=== PATIENT | female | born 1965 | race Caucasian/White ===

== ENCOUNTER 2023-11-19 14:14 | Emergency (ER) | payer MEDICAID, SELFPAY ==
[2023-11-19] VITALS (15 sets, daily range): BP systolic 121–134; BP diastolic 70–81; PULSE 82–93; RESP 14–16; TEMP 36.6; O2SAT 91–99; BMI 37.0
--- NOTE | 2023-11-19 14:53 | CRLHL7_ITS ---
For Patients: As a result of the Century Cures Act, medical imaging exams and procedure reports are released immediately into your electronic medical record. You may view this report before your referring provider. If you have questions, please contact your health care provider. Indication: Upper abdominal pain, recent gastric bypass Technique: CT abdomen and pelvis after the intravenous administration of 112 cc of Isovue 370 Comparison: CT abdomen and pelvis 11/17/2020 Findings: Lower chest is clear. There are a couple of subcentimeter hypodensities within the liver which are too small to characterize. The gallbladder is surgically absent. The spleen, adrenal glands, pancreas and kidneys are unremarkable. There are no pelvic cysts or masses. Postsurgical changes of gastric bypass are identified. The hollow viscera without obstruction, focal bowel wall thickening or adjacent inflammatory stranding. The appendix is normal. Few scattered colonic diverticula are noted. There is no free air, ascites or lymphadenopathy. The abdominal aorta and its major branches are patent and normal in caliber. Degenerative changes are present within the spine, most significant at L4-5 and L5-S1. Rounded low-density within the subcutaneous fat of the upper mid abdominal wall is suggestive of focal fat necrosis. Impression: No acute intra-abdominal findings. Please note that all CT scans at this facility use dose modulation, iterative reconstruction, and/or weight-based dosing when appropriate to reduce radiation dose to as low as reasonably achievable. Dictated by Tashi Poole MD @ 11/19/2023 4:21:32 PM (Electronically Signed)
--- NOTE | 2023-11-19 14:55 | ED_ITS ---
HPI - Abdominal Pain General Chief Complaint: Abdominal Pain Stated Complaint: pain in stomach Time Seen by Provider: 11/19/23 14:38 History of Present Illness HPI narrative: This 58-year-old female comes in with severe upper epigastric abdominal pain. She had a gastric bypass surgery a couple weeks ago and reports pain beginning this morning and now becoming very severe. She has some nausea with vomiting. She arrives here with normal vital signs. Related Data Home Medications ?Medication ?Instructions ?Recorded ?Confirmed amitriptyline 100 mg tablet 100 mg PO QPM 08/28/23 08/28/23 amitriptyline 50 mg tablet mg PO 08/28/23 08/28/23 blood-glucose sensor (DexPlastyc G6 #1 ea 08/28/23 08/28/23 Sensor device) blood-glucose transmitter (Dexcom #1 ea 08/28/23 08/28/23 G6 Transmitter device) calcium citrate mg PO 08/28/23 08/28/23 cholecalciferol (vitamin D3) 125 125 mcg PO DAILY 08/28/23 08/28/23 mcg (5,000 unit) capsule diclofenac sodium 1 % topical gel 1 ea topical QID 08/28/23 08/28/23 emollient (Vanicream topical) 1 applic topical BID 08/28/23 08/28/23 exenatide microspheres 2 mg/0.85 mg subcut 08/28/23 08/28/23 mL subcutaneous auto-injector (Byshawn Khan) famotidine 40 mg tablet 40 mg PO DAILY 08/28/23 08/28/23 furosemide 40 mg tablet 40 mg PO BID 08/28/23 08/28/23 gabapentin 300 mg capsule 300 mg PO 3XD 08/28/23 08/28/23 hydroxyzine pamoate 50 mg capsule mg PO BID 08/28/23 08/28/23 insulin aspart U-100 100 unit/mL subcut 08/28/23 08/28/23 (3 mL) subcutaneous pen insulin glargine 100 unit/mL (3 unit subcut 08/28/23 08/28/23 mL) subcutaneous pen (Lantus Solostar U-100 Insulin) levothyroxine 150 mcg tablet 150 mcg PO DAILY 08/28/23 08/28/23 lisinopril 5 mg tablet 5 mg PO DAILY 08/28/23 08/28/23 metformin 500 mg tablet,extended 500 mg PO DAILY 08/28/23 08/28/23 release 24 hr metoprolol tartrate 100 mg tablet 100 mg PO BID 08/28/23 08/28/23 omeprazole 40 mg capsule,delayed 40 mg PO DAILY 08/28/23 08/28/23 release pen needle, diabetic 31 gauge x #1,200 ea 08/28/23 08/28/23 3/16 (BD Ultra-Fine Mini Pen Needle) prazosin 5 mg capsule mg PO 08/28/23 08/28/23 quetiapine 300 mg tablet 300 mg PO BID 08/28/23 08/28/23 rosuvastatin 5 mg tablet 5 mg PO DAILY 08/28/23 08/28/23 tizanidine 2 mg tablet 2 mg PO 3XD 08/28/23 08/28/23 triamcinolone acetonide 0.1 % 1 applic topical BID-TID 08/28/23 08/28/23 topical ointment triamcinolone acetonide 0.5 % topical DAILY 08/28/23 08/28/23 topical ointment ondansetron 4 mg disintegrating mg PO 11/19/23 tablet Previous Rx's ?Medication ?Instructions ?Recorded hydrocortisone 2.5 % topical cream 1 applic topical TID PRN rash #[id number] 08/28/23 grams Allergies Allergy/AdvReac Type Severity Reaction Status Date / Time hydrochlorothiazide Allergy Severe Verified 11/19/23 15:59 Review of Systems Status of ROS Reports: 10 or more systems reviewed and unremarkable except as noted in History and below Narrative Constitutional: No fevers, no weight gain or loss. Eyes: No discharge. No vision changes. HENT: No congestion, no sore throat, no ear pain. Cardiovascular: No chest pain, no palpitations. Respiratory: No shortness of breath, no wheezes, no cough. Gastrointestinal: No diarrhea. Upper epigastric abdominal pain. Nausea with vomiting. Genitourinary: No dysuria, no hematuria. Musculoskeletal: Normal range of motion. Skin: No rashes, no pruritis. Neurological: No dizziness, weakness, sensory change, speech change. Endo/Heme/Allergies: No bruising or bleeding. No polydipsia. Pysch: no suicidality, no anxiety, no insomnia. All other systems reviewed and are negative. PFSH PFSH Social History Smoking Status: Never smoker How often do you have a drink containing alcohol: never AUDIT-C Alcohol total score: 0 Non-prescribed substance use: denies use Exam Narrative: Exam Narrative: Constitutional: Well-developed, well-nourished. HEENT: Normocephalic, atraumatic. Neck: Normal range of motion. Nontender. Supple. Heart: Regular. No murmurs. Normal rate. Intact distal pulses. Lungs: Clear to auscultation. No chest discomfort. No wheezes, rhonchi, or rales. Abdomen: Normal bowel sounds. Upper epigastric tenderness. No rebound tenderness. Genitalia: Deferred. Back: No midline tenderness. Normal range of motion. Extremities: Normal range of motion. No injury. Skin: Intact. No rash. Warm. No erythema or pallor. Neurologic: No altered sensation. No weakness. Alert and oriented. Psychiatric: No suicidality. No anxiety or depression. No insomnia. Nursing notes and vitals signs are reviewed. Const: Vital Signs, click to edit/add: Vital Signs - 24 hr 11/19/23 14:27 11/19/23 16:00 11/19/23 16:04 Temperature 97.9 F Pulse Rate 82 Pulse Rate [Pulse Oximeter] 83 Respiratory Rate 16 14 Blood Pressure [Ri ght Upper Arm] 134/81 Pulse Oximetry 98 97 99 Oxygen Delivery Me thod Room Air 11/19/23 16:30 Temperature Pulse Rate 93 Pulse Rate [Pulse Oximeter] Respiratory Rate 16 Blood Pressure [Ri ght Upper Arm] Pulse Oximetry 97 Oxygen Delivery Me thod Course Vital Signs Vital signs: Initial Vital Signs Temperature 97.9 F 11/19/23 14:27 Temperature Source Temporal Artery Scan 11/19/23 14:27 Pulse Rate 83 11/19/23 14:27 Respiratory Rate 16 11/19/23 14:27 Blood Pressure 134/81 11/19/23 14:27 Blood Pressure Mean 98 11/19/23 14:27 Blood Pressure Position Sitting 11/19/23 14:27 Pulse Oximetry 98 11/19/23 14:27 Oxygen Delivery Method Room Air 11/19/23 14:27 Vital Signs Temperature 97.9 F 11/19/23 14:27 Pulse Rate 83 11/19/23 14:27 Respiratory Rate 16 11/19/23 14:27 Blood Pressure 134/81 11/19/23 14:27 Pulse Oximetry 98 11/19/23 14:27 Oxygen Delivery Method Room Air 11/19/23 14:27 Temperature 97.9 F 11/19/23 14:27 Pulse Rate 93 11/19/23 16:30 Respiratory Rate 16 11/19/23 16:30 Blood Pressure 134/81 11/19/23 14:27 Pulse Oximetry 97 11/19/23 16:30 Oxygen Delivery Method Room Air 11/19/23 14:27 Medications Administered Medications: Discontinued Medications Generic Name Dose Route Start Last Admin Trade Name Manolo PRN Reason Stop Dose Admin Hydromorphone HCl 0.5 mg 11/19/23 14:52 11/19/23 15:31 Hydromorphone 0.5 Mg/0.5 Ml Inj IVP 11/19/23 14:53 0.5 mg ONCE ONE Administration Ketamine HCl 20 mg/ Sodium 100.2 mls @ 300.6 mls/hr 11/19/23 18:26 11/19/23 19:25 Chloride IVPB 11/19/23 18:27 Infused ONCE ONE Infusion Lidocaine/Aluminum/Magnesium/Simeth 30 ml 11/19/23 17:04 11/19/23 17:31 Gi Cocktail (Visc Lido/Antacid) 30 Ml PO 11/19/23 17:05 30 ml ONCE ONE Administration Morphine Sulfate 4 mg 11/19/23 17:59 11/19/23 18:10 Morphine 4 Mg/Ml Inj IVP 11/19/23 18:00 4 mg ONCE ONE Administration Ondansetron HCl 4 mg 11/19/23 14:52 11/19/23 15:30 Ondansetron 2 Mg/Ml Inj IVP 11/19/23 14:53 4 mg ONCE ONE Administration MDM - Abdominal Pain MDM Narrative Medical decision making narrative: This patient comes in looking rather miserable with severe upper epigastric abdominal pain. An IV was established where she received Dilaudid and Zofran but did not get any relief with this medicine. Later she received morphine 4 mg and again no relief to her pain. Then she received ketamine 20 mg and this brought great relief to her pain. A CT scan of the abdomen and pelvis is obtained and shows no acute intra-abdominal findings. The patient did have a gastric bypass somewhat recently but has been doing well and is still on a complete liquid diet. Labs returned with reassuring results today. She is okay to be discharged home. I did provide in [facility] prescription for some tablets of [place] and advised her to follow-up with her team regarding these symptoms. Lab Data Labs: Lab Results 11/19/23 11/19/23 Range/Units 15:11 15:30 WBC 10.54 (4.50-11.00) K/uL RBC 4.91 (4.00-5.20) m/uL Hgb 13.3 (12.0-16.0) gm/dL Hct 40.2 (33.0-51.0) % MCV 82 (80-100) fL MCH 27 (26-34) pg MCHC 33 (32-36) gm/dL RDW Coeff of [place] 14.5 (11.5-15.5) % Plt Count 338 (140-440) K/uL Neut % (Auto) 58.0 (42.0-72.0) % Lymph % (Auto) 32.4 (20-44) % [place] % (Auto) 7.5 (0.0-11.0) % Eos % (Auto) 1.2 (0.0-7.0) % Baso % (Auto) 0.3 (0.0-3.0) % Neut # (Auto) 6.11 (1.7-7.0) K/uL Lymph # (Auto) 3.42 H (0.90-2.90) K/uL [place] # (Auto) 0.80 (0.00-0.90) K/UL Eos # (Auto) 0.13 (0.00-0.50) K/uL Baso # (Auto) 0.03 (0.00-0.30) K/uL Abs Immat Gran (auto) 0.06 (0.00-0.30) K/uL Imm/Tot Granulo (auto) 0.6 % Sodium 135 (135-149) mmol/L Potassium 5.1 (3.6-5.1) mmol/L Chloride 100 (96-114) mmol/L Carbon Dioxide 19 L (20-32) mmol/L Anion Gap 16 H (7-15) mEq/L BUN 20 (7-30) mg/dL Creatinine 1.0 (0.5-1.5) mg/dL Estimated Creat Clear 58.11 Estimated GFR 66 ml/min Glucose 147 H (60-115) mg/dL Calcium 10.1 (8.4-10.6) mg/dL POC Creatinine 1.1 (0.6-1.3) mg/dl Imaging Data CT scan - abdomen: Radiologist's impression: No acute intra-abdominal findings. Discharge Plan Discharge Clinical Impression: Abdominal pain Patient Disposition: Home, Self-Care Condition: Improved Additional Instructions: Continue current plans. Take medication as needed and directed. Follow up with MD or return if worsening. Prescriptions: No Action metformin 500 mg tablet extended release 24 hr 500 mg PO DAILY famotidine 40 mg tablet 40 mg PO DAILY metoprolol tartrate 100 mg tablet 100 mg PO BID furosemide 40 mg tablet 40 mg PO BID Bydureon BCise 2 mg/0.85 mL auto-injector subcut calcium citrate 250 mg calcium tablet PO rosuvastatin 5 mg tablet 5 mg PO DAILY cholecalciferol (vitamin D3) 125 mcg (5,000 unit) capsule 125 mcg PO DAILY amitriptyline 100 mg tablet 100 mg PO QPM lisinopril 5 mg tablet 5 mg PO DAILY gabapentin 300 mg capsule 300 mg PO 3XD levothyroxine 150 mcg tablet 150 mcg PO DAILY prazosin 5 mg capsule PO amitriptyline 50 mg tablet PO omeprazole 40 mg capsule,delayed release(DR/EC) 40 mg PO DAILY hydroxyzine pamoate 50 mg capsule PO BID quetiapine 300 mg tablet 300 mg PO BID (DME) Dexcom G6 Sensor Device See Rx Instructions .ROUTE Q10D Qty: 1 Rx Instructions: As directed emollient [Vanicream] Cream 1 applic topical BID triamcinolone acetonide 0.5 % ointment topical DAILY (DME) Dexcom G6 Transmitter Device See Rx Instructions .ROUTE .MEDSUPPLY Qty: 1 Patient Comments: [NO ORIGINAL SIG] Rx Instructions: As directed (DME) pen needle, diabetic [BD Ultra-Fine Mini Pen Needle] 31 gauge x 3/16 needle See Rx Instructions .ROUTE QID Qty: 1200 Rx Instructions: As directed tizanidine 2 mg tablet 2 mg PO 3XD triamcinolone acetonide 0.1 % ointment 1 applic topical BID-TID diclofenac sodium 1 % gel 1 ea topical QID insulin glargine [Lantus Solostar U-100 Insulin] 100 unit/mL (3 mL) insulin pen subcut insulin aspart U-100 100 unit/mL (3 mL) insulin pen subcut hydrocortisone 2.5 % cream 1 applic topical TID PRN (Reason: rash) Qty: 454 0RF ondansetron 4 mg tablet,disintegrating PO Follow Up/Referrals: Gail Guerrier MD [Primary Care Provider] - Stand Alone Forms: [facility] Info Instructions
[2023-11-19] MEDS: ONDANSETRON 2 MG/ML inj 4 MG IVP (15:30)
[2023-11-19] MEDS: HYDROmorphone 0.5 mg/0.5 ml inj IVP (15:31)
[2023-11-19 15:34] LABS: Basophils Absolute Auto 0.03 K/uL (0.00-0.30); Basophils Percent Auto 0.3 % (0.0-3.0); Eosinophils Absolute Auto 0.13 K/uL (0.00-0.50); Eosinophils Percent Auto 1.2 % (0.0-7.0); Hematocrit 40.2 % (33.0-51.0); Hemoglobin* 13.3 gm/dL (12.0-16.0); Immature Granulocytes Abs Auto 0.06 K/uL (0.00-0.30); Immature Granulocytes Pct Auto 0.6 %; Lymphocytes Absolute Auto 3.42 K/uL (0.90-2.90); Lymphocytes Percent Auto 32.4 % (20-44); Mean Corpuscular HGB Conc 33 gm/dL (32-36); Mean Corpuscular Hemoglobin 27 pg (26-34); Mean Corpuscular Volume 82 fL (80-100); Monocytes Percent Auto 7.5 % (0.0-11.0); Neutrophils Absolute Auto 6.11 K/uL (1.7-7.0); Platelet Count* 338 K/uL (140-440); RDW Coefficient of Variation % 14.5 % (11.5-15.5); Red Blood Count 4.91 m/uL (4.00-5.20); White Blood Count* 10.54 K/uL (4.50-11.00)
[2023-11-19 15:41] LABS: Creatinine, Point-of-Care* 1.1 mg/dl (0.6-1.3)
[2023-11-19 15:48] LABS: Chloride* 100 mmol/L (96-114); Potassium* 5.1 mmol/L (3.6-5.1); Sodium* 135 mmol/L (135-149)
--- OUTSIDE RECORDS SUMMARY | 2023-11-19 15:48 | XMS_ITS ---
Author Organization Unknown Patient Care team information Name Category Status Period Participants - - Proposed period not known -
[2023-11-19 15:51] LABS: Anion Gap 16 mEq/L (7-15); Blood Urea Nitrogen* 20 mg/dL (7-30); Carbon Dioxide* 19 mmol/L (20-32); Est. Creatinine Clearance* 58.11; Estimated Glomerular Filt Rate 66 ml/min; Glucose* 147 mg/dL (60-115)
[2023-11-19 15:52] LABS: Calcium* 10.1 mg/dL (8.4-10.6)
[2023-11-19 15:54] LABS: Slide Review Reflex No
[2023-11-19] MEDS: GI COCKTAIL (VISC LIDO/ANTACID) 30 ML PO (17:31)
[2023-11-19] MEDS: MORPHINE 4 MG/ML INJ IVP (18:10)
[2023-11-19] MEDS: KETAMINE HCL 20 MG in 0.9 % SODIUM CHLORIDE 100 ml 100 ML 300.6 MG IVPB (18:55)
== END 2023-11-19 19:58 | disposition home or self-care (01) ==
PROVIDERS: Emergency Provider Emergency Medicine Emergency Medical Services; PCP Family Medicine
DX: R10.13 Epigastric pain (principal)
CPT/HCPCS: 36415; 74177; 80048; 82565; 85025; 94761; 96365; 96375; 99284; A9270; J1170; J2270; J2405; J3490; Q9967

== ENCOUNTER 2023-11-24 18:03 | Emergency (ER) | payer MEDICAID, SELFPAY ==
[2023-11-24 18:11] VITALS: BP 118/73; PULSE 98; RESP 20; TEMP 36.5; O2SAT 98; BMI 36.3
--- NOTE | 2023-11-24 19:16 | ED.ABDPAIN ---
HPI - Abdominal Pain General Chief Complaint: Abdominal Pain Stated Complaint: Abdominal pain Time Seen by Provider: 11/24/23 19:02 History of Present Illness HPI narrative: This 58-year-old female comes in with upper epigastric abdominal pain. She had a gastric bypass surgery a few weeks ago and was seen by me about 5 days ago with similar symptoms. At that time she had CT imaging and labs done with normal results. She received IV doses of Dilaudid and morphine without any relief at that time. She then received ketamine which brought great relief. She states that she has been doing well until today when this same pain returned. She does have an appointment with her surgery Clinic in the [facility] in 2 days from now. She arrives here with normal vital signs but reports severe upper epigastric abdominal pain and is persistently crying. She states that she has not had a bowel movement for the last couple weeks. She has been taking MiraLax. Related Data Home Medications ?Medication ?Instructions ?Recorded ?Confirmed amitriptyline 100 mg tablet 100 mg PO QPM 08/28/23 08/28/23 amitriptyline 50 mg tablet mg PO 08/28/23 08/28/23 blood-glucose sensor (Dexcom G6 #1 ea 08/28/23 08/28/23 Sensor device) blood-glucose transmitter (Dexcom #1 ea 08/28/23 08/28/23 G6 Transmitter device) calcium citrate mg PO 08/28/23 08/28/23 cholecalciferol (vitamin D3) 125 125 mcg PO DAILY 08/28/23 08/28/23 mcg (5,000 unit) capsule diclofenac sodium 1 % topical gel 1 ea topical QID 08/28/23 08/28/23 emollient (Vanicream topical) 1 applic topical BID 08/28/23 08/28/23 exenatide microspheres 2 mg/0.85 mg subcut 08/28/23 08/28/23 mL subcutaneous auto-injector (ZohaibSonnedix Erin) famotidine 40 mg tablet 40 mg PO DAILY 08/28/23 08/28/23 furosemide 40 mg tablet 40 mg PO BID 08/28/23 08/28/23 gabapentin 300 mg capsule 300 mg PO 3XD 08/28/23 08/28/23 hydroxyzine pamoate 50 mg capsule mg PO BID 08/28/23 08/28/23 insulin aspart U-100 100 unit/mL subcut 08/28/23 08/28/23 (3 mL) subcutaneous pen insulin glargine 100 unit/mL (3 unit subcut 08/28/23 08/28/23 mL) subcutaneous pen (Lantus Solostar U-100 Insulin) levothyroxine 150 mcg tablet 150 mcg PO DAILY 08/28/23 08/28/23 lisinopril 5 mg tablet 5 mg PO DAILY 08/28/23 08/28/23 metformin 500 mg tablet,extended 500 mg PO DAILY 08/28/23 08/28/23 release 24 hr metoprolol tartrate 100 mg tablet 100 mg PO BID 08/28/23 08/28/23 omeprazole 40 mg capsule,delayed 40 mg PO DAILY 08/28/23 08/28/23 release pen needle, diabetic 31 gauge x #1,200 ea 08/28/23 08/28/2305/15 (BD Ultra-Fine Mini Pen Needle) prazosin 5 mg capsule mg PO 08/28/23 08/28/23 quetiapine 300 mg tablet 300 mg PO BID 08/28/23 08/28/23 rosuvastatin 5 mg tablet 5 mg PO DAILY 08/28/23 08/28/23 tizanidine 2 mg tablet 2 mg PO 3XD 08/28/23 08/28/23 triamcinolone acetonide 0.1 % 1 applic topical BID-TID 08/28/23 08/28/23 topical ointment triamcinolone acetonide 0.5 % topical DAILY 08/28/23 08/28/23 topical ointment ondansetron 4 mg disintegrating mg PO 11/19/23 tablet Previous Rx's ?Medication ?Instructions ?Recorded hydrocortisone 2.5 % topical cream 1 applic topical TID PRN rash #[id number] 08/28/23 grams Allergies Allergy/AdvReac Type Severity Reaction Status Date / Time hydrochlorothiazide Allergy Severe Verified 11/19/23 15:59 Review of Systems Status of ROS Reports: 10 or more systems reviewed and unremarkable except as noted in History and below Narrative Constitutional: No fevers, no weight gain or loss. Eyes: No discharge. No vision changes. HENT: No congestion, no sore throat, no ear pain. Cardiovascular: No chest pain, no palpitations. Respiratory: No shortness of breath, no wheezes, no cough. Gastrointestinal: No vomiting, no diarrhea. Severe upper epigastric abdominal pain. Genitourinary: No dysuria, no hematuria. Musculoskeletal: Normal range of motion. Skin: No rashes, no pruritis. Neurological: No dizziness, weakness, sensory change, speech change. Endo/Heme/Allergies: No bruising or bleeding. No polydipsia. Pysch: no suicidality, no anxiety, no insomnia. All other systems reviewed and are negative. PFSH PFS Social History Smoking Status: Never smoker How often do you have a drink containing alcohol: never AUDIT-C Alcohol total score: 0 Non-prescribed substance use: denies use Exam Narrative: Exam Narrative: Constitutional: Well-developed, well-nourished, no acute distress. HEENT: Normocephalic, atraumatic. Neck: Normal range of motion. Nontender. Supple. Heart: Regular. No murmurs. Normal rate. Intact distal pulses. Lungs: Clear to auscultation. No chest discomfort. No wheezes, rhonchi, or rales. Abdomen: Normal bowel sounds. Severe tenderness in the upper epigastric region. No rebound tenderness. Genitalia: Deferred. Back: No midline tenderness. Normal range of motion. Extremities: Normal range of motion. No injury. Skin: Intact. No rash. Warm. No erythema or pallor. Neurologic: No altered sensation. No weakness. Alert and oriented. Psychiatric: No suicidality. No anxiety or depression. No insomnia. Nursing notes and vitals signs are reviewed. Const: Vital Signs, click to edit/add: Vital Signs - 24 hr 11/24/23 18:11 11/24/23 21:46 11/24/23 21:50 Temperature 97.7 F Pulse Rate 94 Pulse Rate [Pulse Oximeter] 98 Respiratory Rate 20 Blood Pressure Blood Pressure [Ri ght Upper Arm] 118/73 Pulse Oximetry 98 98 95 Oxygen Delivery Me thod Room Air 11/24/23 22:00 11/24/23 22:01 11/24/23 22:15 Temperature Pulse Rate 92 92 97 Pulse Rate [Pulse Oximeter] Respiratory Rate Blood Pressure 145/78 H Blood Pressure [Ri ght Upper Arm] Pulse Oximetry 90 96 88 Oxygen Delivery Me thod Course Vital Signs Vital signs: Initial Vital Signs Temperature 97.7 F 11/24/23 18:11 Temperature Source Temporal Artery Scan 11/24/23 18:11 Pulse Rate 98 11/24/23 18:11 Pulse Rhythm Regular 11/24/23 18:11 Respiratory Rate 20 11/24/23 18:11 Blood Pressure 118/73 11/24/23 18:11 Blood Pressure Mean 88 11/24/23 18:11 Blood Pressure Position Sitting 11/24/23 18:11 Pulse Oximetry 98 11/24/23 18:11 Oxygen Delivery Method Room Air 11/24/23 18:11 Vital Signs Temperature 97.7 F 11/24/23 18:11 Pulse Rate 98 11/24/23 18:11 Respiratory Rate 20 11/24/23 18:11 Blood Pressure 118/73 11/24/23 18:11 Pulse Oximetry 98 11/24/23 18:11 Oxygen Delivery Method Room Air 11/24/23 18:11 Temperature 97.7 F 11/24/23 18:11 Pulse Rate 97 11/24/23 22:15 Respiratory Rate 20 11/24/23 18:11 Blood Pressure 145/78 H 11/24/23 22:01 Pulse Oximetry 88 11/24/23 22:15 Oxygen Delivery Method Room Air 11/24/23 18:11 Medications Administered Medications: Discontinued Medications Generic Name Dose Route Start Last Admin Trade Name Freq PRN Reason Stop Dose Admin Haloperidol Lactate 5 mg 11/24/23 21:32 11/24/23 21:37 Haloperidol 5 Mg/Ml Inj IV 11/24/23 21:33 5 mg ONCE ONE Administration Hydromorphone HCl 0.5 mg 11/24/23 19:14 11/24/23 19:43 Hydromorphone 0.5 Mg/0.5 Ml Inj IVP 11/24/23 19:15 0.5 mg ONCE ONE Administration Sodium Chloride 1,000 mls @ 1,000 mls/hr 11/24/23 19:15 11/24/23 20:43 0.9 % Sodium Chloride 1000 Ml IV 11/24/23 20:14 Infused .Q1H MAXINE Infusion Ketamine HCl 20 mg/ Sodium 100.2 mls @ 300.6 mls/hr 11/24/23 20:03 11/24/23 20:44 Chloride IVPB 11/24/23 20:04 Infused ONCE ONE Infusion Lidocaine/Aluminum/Magnesium/Simeth 30 ml 11/24/23 20:42 11/24/23 20:46 Gi Cocktail (Visc Lido/Antacid) 30 Ml PO 11/24/23 20:43 30 ml ONCE ONE Administration Lorazepam 1 mg 11/24/23 21:05 11/24/23 21:11 Lorazepam 2 Mg/Ml Inj IV 11/24/23 21:06 1 mg ONCE ONE Administration Ondansetron HCl 4 mg 11/24/23 19:50 11/24/23 19:58 Ondansetron 2 Mg/Ml Inj IVP 11/24/23 19:51 4 mg ONCE ONE Administration MDM - Abdominal Pain MDM Narrative Medical decision making narrative: This patient returns again with persistent crying from severe upper epigastric pain. She was seen by me 5 days ago with similar symptoms and finally got improvement with ketamine. At that visit she had labs and CT imaging in these returned with normal results. Today on exam her abdomen is painful just in the upper epigastric region. She does not report pain any other area and has no rebound tenderness and has normal bowel sounds. I did do an x-ray of the abdomen which shows normal findings. Labs are acquired also and these returned with normal results. The patient received IV doses of Dilaudid and Zofran initially. This did not bring any relief to her symptoms. She then received ketamine which also did nothing for her by her report. Later she received Ativan and Haldol and a GI cocktail and none of these seem to help her much however when I look at her she is no longer crying. I did speak with a bariatric surgeon on-call at [facility] who consulted with me regarding these matters. There are no beds available for her to come there. She does have a follow-up appointment in their clinic in 2 days. She is okay to be discharged home. I did provide prescriptions for [place] and Zofran. She is encouraged to continue her current medications which does include Levsin. She is also been taking some MiraLax but probably needs to take more as she has not had much by way of bowel movement. Lab Data Labs: Lab Results 11/24/23 Range/Units 19:30 WBC 9.15 (4.50-11.00) K/uL RBC 5.03 (4.00-5.20) m/uL Hgb 13.8 (12.0-16.0) gm/dL Hct 41.4 (33.0-51.0) % MCV 82 (80-100) fL MCH 27 (26-34) pg MCHC 33 (32-36) gm/dL RDW Coeff of [place] 14.9 (11.5-15.5) % Plt Count 427 (140-440) K/uL Neut % (Auto) 57.5 (42.0-72.0) % Lymph % (Auto) 31.0 (20-44) % [place] % (Auto) 10.2 (0.0-11.0) % Eos % (Auto) 0.7 (0.0-7.0) % Baso % (Auto) 0.3 (0.0-3.0) % Neut # (Auto) 5.26 (1.7-7.0) K/uL Lymph # (Auto) 2.84 (0.90-2.90) K/uL [place] # (Auto) 0.90 (0.00-0.90) K/UL Eos # (Auto) 0.06 (0.00-0.50) K/uL Baso # (Auto) 0.03 (0.00-0.30) K/uL Abs Immat Gran (auto) 0.03 (0.00-0.30) K/uL Imm/Tot Granulo (auto) 0.3 % Sodium 136 (135-149) mmol/L Potassium 3.7 (3.6-5.1) mmol/L Chloride 98 (96-114) mmol/L Carbon Dioxide 20 (20-32) mmol/L Anion Gap 18 H (7-15) mEq/L BUN 21 (7-30) mg/dL Creatinine 1.1 (0.5-1.5) mg/dL Estimated Creat Clear 52.82 Estimated GFR 59 ml/min Glucose 131 H (60-115) mg/dL Calcium 10.6 (8.4-10.6) mg/dL Lipase 217 (23-300) U/L Imaging Data XR Abdomen: Radiologist's impression: Unremarkable appearance of the visualized abdomen. Discharge Plan Discharge Clinical Impression: Abdominal pain Patient Disposition: Home, Self-Care Condition: Stable Additional Instructions: Take medication as prescribed. Follow up with MD as scheduled. Prescriptions: No Action metformin 500 mg tablet extended release 24 hr 500 mg PO DAILY famotidine 40 mg tablet 40 mg PO DAILY metoprolol tartrate 100 mg tablet 100 mg PO BID furosemide 40 mg tablet 40 mg PO BID Bydureon BCise 2 mg/0.85 mL auto-injector subcut calcium citrate 250 mg calcium tablet PO rosuvastatin 5 mg tablet 5 mg PO DAILY cholecalciferol (vitamin D3) 125 mcg (5,000 unit) capsule 125 mcg PO DAILY amitriptyline 100 mg tablet 100 mg PO QPM lisinopril 5 mg tablet 5 mg PO DAILY gabapentin 300 mg capsule 300 mg PO 3XD levothyroxine 150 mcg tablet 150 mcg PO DAILY prazosin 5 mg capsule PO amitriptyline 50 mg tablet PO omeprazole 40 mg capsule,delayed release(DR/EC) 40 mg PO DAILY hydroxyzine pamoate 50 mg capsule PO BID quetiapine 300 mg tablet 300 mg PO BID (DME) Dexcom G6 Sensor Device See Rx Instructions .ROUTE Q10D Qty: 1 Rx Instructions: As directed emollient [Vanicream] Cream 1 applic topical BID triamcinolone acetonide 0.5 % ointment topical DAILY (DME) Dexcom G6 Transmitter Device See Rx Instructions .ROUTE .MEDSUPPLY Qty: 1 Patient Comments: [NO ORIGINAL SIG] Rx Instructions: As directed (DME) pen needle, diabetic [BD Ultra-Fine Mini Pen Needle] 31 gauge x 3/16 needle See Rx Instructions .ROUTE QID Qty: 1200 Rx Instructions: As directed tizanidine 2 mg tablet 2 mg PO 3XD triamcinolone acetonide 0.1 % ointment 1 applic topical BID-TID diclofenac sodium 1 % gel 1 ea topical QID insulin glargine [Lantus Solostar U-100 Insulin] 100 unit/mL (3 mL) insulin pen subcut insulin aspart U-100 100 unit/mL (3 mL) insulin pen subcut hydrocortisone 2.5 % cream 1 applic topical TID PRN (Reason: rash) Qty: 454 0RF ondansetron 4 mg tablet,disintegrating PO Follow Up/Referrals: Gail Guerrier MD [Primary Care Provider] - Stand Alone Forms: [facility] Info Instructions
[2023-11-24 19:41] LABS: Basophils Absolute Auto 0.03 K/uL (0.00-0.30); Basophils Percent Auto 0.3 % (0.0-3.0); Eosinophils Absolute Auto 0.06 K/uL (0.00-0.50); Eosinophils Percent Auto 0.7 % (0.0-7.0); Hematocrit 41.4 % (33.0-51.0); Hemoglobin* 13.8 gm/dL (12.0-16.0); Immature Granulocytes Abs Auto 0.03 K/uL (0.00-0.30); Immature Granulocytes Pct Auto 0.3 %; Lymphocytes Absolute Auto 2.84 K/uL (0.90-2.90); Mean Corpuscular HGB Conc 33 gm/dL (32-36); Mean Corpuscular Hemoglobin 27 pg (26-34); Mean Corpuscular Volume 82 fL (80-100); Monocytes Percent Auto 10.2 % (0.0-11.0); Neutrophils Absolute Auto 5.26 K/uL (1.7-7.0); Neutrophils Percent Auto 57.5 % (42.0-72.0); Platelet Count* 427 K/uL (140-440); RDW Coefficient of Variation % 14.9 % (11.5-15.5); Red Blood Count 5.03 m/uL (4.00-5.20); Slide Review Reflex No; White Blood Count* 9.15 K/uL (4.50-11.00)
[2023-11-24] MEDS: 0.9 % SODIUM CHLORIDE 1000 ml 1,000 ML IV (19:42)
[2023-11-24] MEDS: HYDROmorphone 0.5 mg/0.5 ml inj IVP (19:43)
[2023-11-24 19:58] LABS: Chloride* 98 mmol/L (96-114); Potassium* 3.7 mmol/L (3.6-5.1); Sodium* 136 mmol/L (135-149)
[2023-11-24] MEDS: ONDANSETRON 2 MG/ML inj 4 MG IVP (19:58)
[2023-11-24 20:00] LABS: Creatinine* 1.1 mg/dL (0.5-1.5); Est. Creatinine Clearance* 52.82; Estimated Glomerular Filt Rate 59 ml/min; Lipase* 217 U/L (23-300)
[2023-11-24 20:01] LABS: Anion Gap 18 mEq/L (7-15); Blood Urea Nitrogen* 21 mg/dL (7-30); Calcium* 10.6 mg/dL (8.4-10.6); Carbon Dioxide* 20 mmol/L (20-32); Glucose* 131 mg/dL (60-115)
[2023-11-24] MEDS: KETAMINE HCL 20 MG in 0.9 % SODIUM CHLORIDE 100 ml 100 ML 300.6 MG IVPB (20:11)
[2023-11-24] MEDS: GI COCKTAIL (VISC LIDO/ANTACID) 30 ML PO (20:46)
[2023-11-24] MEDS: LORazepam 2 MG/ML inj 1 MG IV (21:11)
[2023-11-24] MEDS: HALOPERIDOL 5 MG/ML INJ IV (21:37)
[2023-11-24 21:46] VITALS: PULSE 94; O2SAT 98
[2023-11-24 21:50] VITALS: O2SAT 95
[2023-11-24 22:00] VITALS: PULSE 92; O2SAT 90
[2023-11-24 22:01] VITALS: BP 145/78; PULSE 92; O2SAT 96
[2023-11-24 22:15] VITALS: PULSE 97; O2SAT 88
--- NOTE | 2023-11-24 22:33 | CRLHL7_ITS ---
For Patients: As a result of the Century Cures Act, medical imaging exams and procedure reports are released immediately into your electronic medical record. You may view this report before your referring provider. If you have questions, please contact your health care provider. INDICATION: Abdominal pain TECHNIQUE: Abdomen Pelvis radiograph 2 views COMPARISON: None FINDINGS: The sensitivity and specificity of the exam are moderately limited by the patient`s body habitus. Bowel: The epigastrium is excluded and cannot be evaluated. The bowel gas pattern is normal without evidence of bowel obstruction. Surgical clips are noted in the right upper quadrant from prior cholecystectomy. Soft tissue: No evidence of pneumoperitoneum present. No suspicious calcifications noted. Bone: Unremarkable for age. IMPRESSION: 1. Unremarkable appearance of the visualized abdomen. Dictated by Karsten Viveros MD @ 11/24/2023 11:23:44 PM Dictated by: Karsten Viveros MD @ 11/24/2023 23:23:48 (Electronically Signed)
== END 2023-11-25 00:44 | disposition home or self-care (01) ==
PROVIDERS: Emergency Provider Emergency Medicine Emergency Medical Services; PCP Family Medicine
DX: R10.13 Epigastric pain (principal)
CPT/HCPCS: 36415; 74018; 80048; 83690; 85025; 94761; 96365; 96375; 99284; A9270; J1170; J1630; J2060; J2405; J3490; J7030

== ENCOUNTER 2025-02-01 11:09 | Emergency (ER) | payer MEDICAID, SELFPAY ==
--- OUTSIDE RECORDS SUMMARY | 2025-02-01 11:13 | XMS_ITS | Clinical Summary ---
Author Organization [facility] Address [address] [place] [id number] Care Team Providers Care Windows Security Analyst Name Role Phone Gail Guerrier MD Primary Care Provider [phone] Jael Justice SOILS ANALYST Unavailable [phone] Unavailable [phone] Shauna Mcgill MD Unavailable Viktor Webb MD Unavailable Amarilys Poole RN Unavailable Siri Romero RD Unavailable Gail Denney NP Unavailable [phone] Allergies Active Allergy Reactions Criticality Noted Date Comments Venom-Honey Bee *Unknown 12/17/2010 Hydrochlorothiazide Hyponatremia 02/16/2023 Nsaids (Non-Steroidal Anti-Inflammatory Drug) Other - Describe In Comment Field 11/06/2023 H/o virgie-n-y gastric bypass. AVOID NSAIDs and aspirin due to risk of gastric and/or G-J anastomotic ulcers. If Meagan must be on short course of NSAIDs or aspirin, use enteric coated if possible and use PPI // Radha Garcia RN, Bariatric Nurse Clinician, [facility] Weight Management 11/06/2023 Medications lidocaine 5 % topical patchIndications: Lumbar radiculopathy Apply on dry, clean, hairless skin. Apply 1 patch to painful area of skin for up to to 12 hours within 24 hour period. 30 Patch 11 023 Active emollient (Vanicream) topical creamIndications: Atopic dermatitis, unspecified type Apply topically to affected area(s) each time if needed for Dry Skin. 453 g 024 Active transmitter (Adapta Medical G6 Transmitter) for continuous blood glucose monitor (CGM)Indications: Type 2 diabetes mellitus with hyperglycemia, with long-term current use of insulin (HC) TO BE USED TO READ BLOOD SUGARS 1 Each 2 024 Active Blood-Gluc Transmitter-Senso r miscIndications:T ype 2 diabetes mellitus with hyperglycemia, with long-term current use of insulin (HC) As directed. 1 Each 024 Active calcium citrate-vitamin D3, 315 mg-250 units, (CITRACAL WITH VITAMIN D) 315 mg-6.25 mcg (250 unit) tab tabletIndications :S/P gastric bypass Take 2 Tablets by mouth two times daily with meals. Total daily dose of Calcium should be 1200mg - 1500mg 360 Tablet 3 025 Active cholecalciferol (VITAMIN D3) 5,000 unit capsuleIndication s:S/P gastric bypass,Vitamin D deficiency Take 1 Capsule (5,000 units) by mouth once daily. 90 Capsule 3 025 Active Blood Pressure Monitor KitIndications:Es sential hypertension Frequency of testing: twice daily 1 Each 025 Active QUEtiapine 300 mg tabletIndications :Insomnia, idiopathic Take 2 Tablets (600 mg) by mouth at bedtime. 180 Tablet 1 025 Active diclofenac topical 1 % gelIndications:Mary Alice mbar spondylolysis APPLY 4GM TOPICALLY TO AFFECTED AREA(S) FOUR TIMES DAILY. 450 g 5 025 Active triamcinolone 0.1 % ointmentIndicatio ns:Atopic dermatitis, unspecified type APPLY TOPICALLY TO AFFECTED AREA(S) TWO TIMES DAILY. 80 g 3 025 Active prazosin (MINIPRESS) 1 mg capsuleIndication s:Nightmares associated with chronic post-traumatic stress disorder Take 1-5 Capsules (1-5 mg) by mouth at bedtime. For nightmares. Take lowest effective dose. 90 Capsule 2 025 Active sennosides-docusa te (Senna Plus) (8.6-50 mg) tabletIndications :S/P gastric bypass Take 1 Tablet by mouth two times daily. 180 Tablet 3 025 Active cyanocobalamin (VITAMIN B12) 1,000 mcg sublingual tabletIndications :S/P gastric bypass Take 1000mcg oral on Thursday and 30 Tablet 025 Active polyethylene glycoL (MIRALAX) 17 gram/scoop powderIndications :S/P gastric bypass Mix 1 scoop (17 g) in liquid then take by mouth two times daily. 850 g 11 025 Active levothyroxine (SYNTHROID) 150 mcg tabletIndications :Acquired hypothyroidism TAKE ONE TABLET BY MOUTH BEFORE BREAKFAST 90 Tablet 025 Active omeprazole (PRILOSEC) 20 mg Delayed-Release capsuleIndication s:Gastroesophagea l reflux disease, unspecified whether esophagitis present TAKE ONE CAPSULE (20MG) BY MOUTH ONCE DAILY BEFORE A MEAL. 90 Capsule 2 025 Active pedi mv no.226-ferrous sulfate (Flintstones with Extra Iron) 18 mg iron chewIndications:S /P gastric bypass CHEW 2 TABLETS BY MOUTH ONCE DAILY. 180 Tablet 5 025 Active FLUoxetine (PROZAC) 20 mg capsuleIndication s:Posttraumatic stress disorder,Panic disorder with agoraphobia Week 1: 10 mg daily in the morning, Week 2-4: 20 mg daily in the morning, Week 5 and on: 40 mg daily 60 Capsule 2 025 Active Ozempic 1 mg/dose (4 mg/3 mL) subcutaneous penIndications:Ty pe 2 diabetes mellitus without complication in remission Inject 1 mg subcutaneous once weekly. 3 mL 3 025 Active sensor (Dexcom G6 Sensor) for continuous blood glucose monitor (CGM)Indications: Type 2 diabetes mellitus with hyperglycemia, with long-term current use of insulin (HC) TO BE USED TO READ BLOOD SUGARS 9 Each 3 025 Active clindamycin (CLEOCIN) 2 % vaginal creamIndications: Bacterial vaginitis Insert 1 Applicatorful into the vagina at bedtime. 40 g 025 Active sensor (Dexcom G6 Sensor) for continuous blood glucose monitor (CGM)Indications: Type 2 diabetes mellitus with hyperglycemia, with long-term current use of insulin (HC) TO BE USED TO READ BLOOD SUGARS 9 Each 3 024 2024 Discontinued multivitamin pediatric chewable (FLINTSTONE'S) tabletIndications :S/P gastric bypass Chew 2 Tablets by mouth once daily. 025 2024 Discontinued(* Med complete/Regim en complete/Level of care change) tolnaftate (Antifungal, Tolnaftate,) 1 % creamIndications: Tinea manuum Apply topically to affected area(s) two times daily. 35.4 g 1 025 2024 Discontinued(* Med complete/Regim en complete/Level of care change) hydrOXYzine pamoate 50 mg capsuleIndication s:Insomnia, idiopathic TAKE 1 TO 2 CAPSULES BY MOUTH UP TO TWICE A DAY NEEDED FOR ANXIETY 60 Capsule 5 025 2024 Discontinued(* Med complete/Regim en complete/Level of care change) boric acid 600 mg vaginal suppositoryIndica tions:BV (bacterial vaginosis) Insert 1 Suppository (600 mg) into the vagina at bedtime. 30 Each 025 2024 Discontinued(* Med complete/Regim en complete/Level of care change) metroNIDAZOLE 0.75% vaginal (METROGEL) 0.75 % (37.5mg/5 gram) vaginal gelIndications:BV (bacterial vaginosis) 1 applicator vaginally Thursday and x 6 months 140 g 5 025 2024 Discontinued(* Med complete/Regim en complete/Level of care change) amitriptyline 50 mg tabletIndications :Posttraumatic stress disorder,Panic disorder with agoraphobia,Insom neto, idiopathic Week 1: 150 mg nightly, Week 2: 125 mg nightly, Week 3: 100 mg nightly, Week 4: 75 mg nightly, Week 5: 50 mg nightly, Week 6: 25 mg nightly, Week 7: discontinue 35 Tablet 025 2024 Discontinued(* Med complete/Regim en complete/Level of care change) amitriptyline 100 mg tabletIndications :Posttraumatic stress disorder,Panic disorder with agoraphobia Week 1: 150 mg nightly, Week 2: 125 mg nightly, Week 3: 100 mg nightly, Week 4: 75 mg nightly, Week 5: 50 mg nightly, Week 6: 25 mg nightly, Week 7: discontinue 21 Tablet 2 2024 Discontinued(* Med complete/Regim en complete/Level of care change) FLUoxetine (PROZAC) 10 mg capsuleIndication s:Posttraumatic stress disorder,Panic disorder with agoraphobia Week 1: 10 mg daily in the morning, Week 2-4: 20 mg daily in the morning, Week 5 and on: 40 mg daily 7 Capsule 2024 Discontinued(* Med complete/Regim en complete/Level of care change) amitriptyline 25 mg tabletIndications :Posttraumatic stress disorder Week 2: one tablet daily with 100 mg tablet for total dose 125 mg, Week 4: take one tablet daily with 50 mg tablet for total dose 75 mg., Week 6: take one tablet daily for total daily dose 25 mg, Week 7 stop. 21 Tablet 2024 Discontinued(* Med complete/Regim en complete/Level of care change) clindamycin (CLEOCIN) 2 % vaginal creamIndications: Bacterial vaginitis Insert 1 Applicatorful into the vagina at bedtime for 14 days. 40 g 2024 Discontinued(R eorder (E-cancel not sent)) cephalexin 500 mg capsuleIndication s:Urinary frequency Take 1 Capsule (500 mg) by mouth three times daily for 5 days. 15 Capsule 2024 Active Problems Patient Care Coordination No te Formatting of this note migh t be different from the original. SEE DOC FLOWSHEET-PIPELINE FOR NEW BARIATRIC COORDINATION NOTE. MARTELL, RN Problem Noted Date Diagnosed Date Hx of obesity 07/07/2024 Hyperparathyroidism 04/13/2024 Nausea & vomiting 11/28/2023 S/P gastric bypass, lysis of adhesions 4 Overview (11/05/2023): Dr. Webb GERD (gastroesophageal reflux disease) 4 Bipolar 1 disorder, depressed, full remission Rheumatoid arthritis, seropositive 06/11/2022 Pap smear for cervical cancer screening 09/20/20 22 Overview (11/19/2021): 08/2021 NIL/HPV negative Plan: Pap/HPV due 08/2026 [place]INA (generalized anxiety disorder) 11/22/2019 Spondylolisthesis, lumbar region 07/14/2018 Lumbar spondylolysis 07/14/2018 DDD (degenerative disc disease), lumbar 07/15/19 Panic disorder with agoraphobia 04/12/2018 Diabetes mellitus, type II 03/31/2018 Posttraumatic stress disorder 01/01/2018 Insomnia, idiopathic 01/01/2018 Essential hypertension 08/19/2017 Deafness in left ear 04/05/2016 Assessment & Plan (10/14/2023 10:06 AM CDT): Both ears Acquired hypothyroidism 05/22/2015 Vitamin D deficiency 05/22/2015 FH: breast cancer 01/09/2011 Positive colorectal cancer screening using Colog uard test Family history of colon cancer Resolved Problems Problem Noted Date Diagnosed Date Resolved Date Abdominal pain 11/28/2023 04/13/2024 Morbid obesity 11/05/2023 04/13/2024 Methadone use disorder, judith re, in sustained remission 07/29/2023 04/13/2024 Morbid obesity with BMI of 40.0-44.9, adult 02/17/2023 04/13/2024 Other ulcerative colitis without complication 03/14/1904/13/2024 Seizure-like activity 03/14/20212024 Severe hyperglycemia due to diabetes mellitus 04/30/1910/26/2020 Ketonemia 04/30/2019 10/26/2020 Hypokalemia with shifts of f luid from extracellular to intracellular space 04/30/2019 Acute kidney injury (KRISTIAN) wi th acute tubular necrosis (ATN) 04/30/2019 10/26/2020 Low iron 04/30/2019 10/26/2020 Hyperglycemia due to type 2 diabetes mellitus 04/29/1910/26/2020 Spondylolysis 07/14/2018 10/26/2020 Muscle spasm of back 07/14/2018 021 Chronic bilateral low back p ain without sciatica 07/14/2018 10/26/2020 BMI 38.0-38.9,adult 04/12/2018 10/27/19 Depression with anxiety 04/05/201610/01 Menorrhagia with irregular cycle 05/23/2015 10/26/2020 Microcytic anemia 05/22/2015 10/26/2020 Vitamin D deficiency 01/15/2011 017 Tobacco use disorder 01/08/2011 017 Unspecified hypothyroidism 12/17/2010 0 08/01/2016 Fluid retention 12/17/2010 04/29/2018 Encounters Date Type Department Care Team Description 01/27/2025 1:00 PM PHYSICAL THERAPIST AIDE Orders Only [address] [address] Lab, [place] <No scans attached> 01/27/2025 Travel 01/27/[address] [address] Gail Guerrier MD Lab 01/18/2025 3:30 PM PHYSICAL THERAPIST AIDE Office Visit [address] [phone] Gail Guerrier MD Vaginal Problem (Feels gel is not working, also wakes up at night with feeling to urinate, but does not) 01/18/2025 Travel 01/16/[address] [address] Gail Guerrier MD Refill Request (Dexcom G6 Sensor) 12/14/2024 8:45 AM CDT Office Visit [facility] [address] [place] [address] Shauna Mcgill MD Medication Management; Follow Up (very stressed, depressed, having a hard time doing things) 12/14/2024 Telephone [facility] [address] [place] [address] Shauna Mcgill MD Medication Management (amitriptyline ) 12/14/2024 Travel 12/09/2024 Travel 12/07/2024 3:00 PM CDT Office Visit [facility] [address] [place] [address] Shirlene Mccarthy, SOILS ANALYST Individual Therapy 12/07/2024 Travel 12/02/2024 Travel 11/15/2024 Refill [facility] Management - [place] [facility] [address] [place] [address] Gail Denney, [place] Refill Request (Flintstones With Extra Iron) 11/15/2024 Telephone [facility] - [place] [address] [place] [phone] Gail Denney, [place] Prior Authorization (Ozempic 1 mg/dose (4 mg/3 mL) subcutaneous pen approval 11/14/2024-11/14/2025) 11/15/2024 Refill [facility] - [place] [address] [place] [phone] Gail Denney, EL[place] Refill Request (Omeprazole) 11/15/[address] [address] Gail Guerrier MD Refill Request (Levothyroxine) 11/14/[address] [address] Gail Guerrier MD Refill Request (Polyethylene Glycol) 11/10/2024 12:15 PM CDT Orders Only [address] [address] Lab, [place] <No scans attached> 11/10/2024 Travel 11/08/2024 3:30 PM CDT [place] [facility] [address] [place] [address] Siri Romero, RD Telehealth 11/08/2024 3:00 PM CDT Telemedicine [facility] - [place] [address] [place] [address] Gail Denney, EL[place] Weight; Telehealth (LAC Annual ) 11/05/2024 Travel 11/04/2024 Orders Only [address] [address] Gail Guerrier MD 1 scan: (1-Ord) 10/26/2024 from Last 3 Months Immunizations Immunization Administration Dates Next Due COVID-19 VACCINE SPIKEVAX (M ODERNA 50MCG/0.5ML) 12YO+ PFS 01/29/2024,01/26/2023 COVID-19 vaccine (Pfizer-Bio NTech 30mcg/0.3mL) 12YO+ BIVALENT PF, MDV 12/30/2021 COVID-19 vaccine (Pfizer-Bio NTech 30mcg/0.3mL) 12YO+ REESE-SUCROSE PF, MDV 09/11/2021,04/04/2021 COVID-19 vaccine (Pfizer-Bio NTech 30mcg/0.3mL) PF, MDV 03/14/2021 Hepatitis B (Adult) 10/14/2023,06/11/2022,2021 INFLUENZA, IIV3 PF (AGE >= 6 MO) 01/18/2025,01/01 Inactivated Polio Vaccine 06/08/1975 Influenza, IIV4 01/26/2023,12/30/2021 Mumps 07/10/1978 Pneumococcal Conj 20-valent (Prevnar 20) 022 Polio Virus, Unspecified 06/08/1975 RSV, Recombinant ADJ Reconst ituted (Arexvy 120MCG/0.5mL) 01/18/2025 Rubella 04/27/1969 Td (Age >=7 Years) 11/30/2009,06/08/1975 Tdap 06/19/2021 Tuberculin (PPD) 03/11/2010 Zoster (Shingrix-RZV, recombinant) 10/14/2023, Family History Medical History Relation Name Comments Cancer-colon Father Hypertension Father Coronary artery disease Maternal Grandfather Hyperlipidemia Maternal Grandfather Hypertension Maternal Grandfather Stroke Maternal Grandfather Obesity Mother Other Mother gallbladder Cancer-colon Paternal Grandmother Hyperlipidemia Paternal Grandmother Hypertension Paternal Grandmother Stroke Paternal Grandmother Anxiety disorder Sister Depression Sister Diabetes Sister Hyperlipidemia Sister Hypertension Sister Other Sister gallbladder Cancer-breast No Family History Relation Name Status Comments Father Maternal Grandfather Maternal Grandmother Mother Alive Paternal Grandfather Paternal Grandmother Sister Alive Social History Tobacco Use Types Packs/Day Years Used Date Smoking Tobacco: Former Cigarettes 0.3 20 1 04/02/1988 - 01/30/2009 Passive Smoke Exposure: Past Smokeless Tobacco: Never Tobacco Cessation:Counseling Given: Not Answered Alcohol Use Standard Drinks/Week Comments No 0 (1 standard drink = 0.6 oz pur e alcohol) quit x 5 years PHQ-2 Answer Date Recorded PHQ-2 TOTAL SCORE 6 12/13/2024 Social Connections Answer Date Recorded Do you often feel lonely or isolated from those around you? 0 01/18/2025 Alcohol Use Answer Date Recorded How often do you have a drink containing alcohol ? 0 11/08/2024 Average Number of Drinks Not on file 025 Frequency of Binge Drinking Not on file 10/2024 Financial Resource Strain Answer Date R ecorded Difficulty of Paying Living Expenses 3 01/18/2025 Difficulty of Paying Living Expenses Not on file 01/18/2025 Food Insecurity Answer Date Recorded Do you worry your food will run out before you are able to buy more? 1 01/18/2025 Transportation Needs Answer Date Record ed Does lack of transportation keep you from medica l appointments? 1 01/18/2025 Does lack of transportation keep you from work, meetings or getting things that you need? 1 01/18/2025 Housing Stability Answer Date Recorded What is your housing situation today? 1 01/18/2025 Interpersonal Safety Answer Date Record ed Are you being hit, kicked, p ushed or yelled at (see row info)? No 11/27/2023 Interpersonal Safety Abuse 12 - 18 Not on file 11/27/2023 Interpersonal Safety Ambulatory Vulnerability No t on file 11/27/2023 Utilities Answer Date Recorded Do you have trouble paying f or utilities (for example, heat, electricity, water, phone)? 1 01/18/2025 Comments No Sex and Gender Information Value Date Recorded Sex Assigned at Not on file Legal Sex Female 6:27 AM PHYSICAL THERAPIST AIDE Gender Identity Not on file Sexual Orientation Not on file Obstetrics History Para Term AB IAB SAB Ectopic Multiple Livin g Live Births 4 4 4 0 0 0 0 0 0 0 0 Date Outcome GA Total Labor Labor/2nd/3rd Weight Sex Type Anes PTL Sara A1 A5 Name Clin Term C-Secti on Term C-Secti on Term C-Secti on Term C-Secti on Last Filed Vital Signs Vital Sign Reading Time Taken Comments Blood Pressure 104/68 01/18/2025 3:41 PM PHYSICAL THERAPIST AIDE Pulse 62 01/18/2025 3:41 PM PHYSICAL THERAPIST AIDE Temperature 36.7 C (98 F) 12/03/2023 7:50 AM CDT Respiratory Rate 16 01/18/2025 3:41 PM PHYSICAL THERAPIST AIDE Oxygen Saturation 99% 11/01/2024 1:42 PM CDT Inhaled Oxygen Concentration - - Weight 71.2 kg (157 lb) 01/18/2025 3:41 PM PHYSICAL THERAPIST AIDE Height 167.6 cm (5' 5.98) 01/18/2025 3:41 PM CS T Body Mass Index 25.35 01/18/2025 3:41 PM PHYSICAL THERAPIST AIDE Plan of Treatment Upcoming Encounters Date Type Department Care Team (Late st Contact Info) Description 02/06/2025 1:30 PM PHYSICAL THERAPIST AIDE Office Visit [facility] [address] [place] [phone] Shirlene Mccarthy, [facility] [address] [place] [address] 02/08/2025 1:15 PM PHYSICAL THERAPIST AIDE Office Visit [facility] [address] [place] [address] Shauna Mcgill MD [address] [place] [address] 02/10/2025 3:00 PM PHYSICAL THERAPIST AIDE Telemedicine [facility] Weight Management [facility] [address] [place] [phone] Gail Denney, [place] [address] [place], [place] [phone] 05/08/2025 1:30 PM CDT Telemedicine [facility] - [place] [address] [place] [address] Gail Denney, POWER NUT RUNNER OPERATOR [address] [place] [address] 05/08/2025 2:00 PM CDT [place] [facility] [place] [address] [place] [address] Siri Romero, RD [address] [facility] [address] [place], [place] [phone] Health Maintenance Due Date Last Done Comments COVID-19 vaccine series ( season) 2024 01/29/2024, 01/26/2023, 12/30/2021, Additional history exists Mammogram for age 45-75 04/15/2025 04/15/19, 02/13/2023, 02/12/2022, Additional history exists Low Dose CT (for lung CA) ag e 50-80 05/19/2025 05/19/2024, 06/30/2022, 07/03/2021 Depression screening for age 12+ 12/14/2025 12/14/2024, 12/13/2024, 07/07/2024, Additional history exists BMI (ht and wt on same day) for age 18+ 01/18/2026 01/18/2025, 11/08/2024, 11/08/2024, Additional history exists Pap test for age 21-65 09/11/2026 , 09/11/2021, 12/03/2017, Additional history exists Colonoscopy through age 75 08/19/202708/18, 07/31/2022 (Verified in Care Everywhere or Patient Record) Lipids for age 45-75 04/13/2029 04/13/2024, 07/29/2023, 08/15/2022, Additional history exists Tetanus booster 06/20/2031 06/19/2021, 1003/2009, 11/30/2009, Additional history exists Hepatitis C screening for ag e 18-79 Completed 09/11/2021 Pneumococcal series for age 50+ Completed HIV for age 15-65 Completed 02/12/2022 Hepatitis B series for 19+ Completed 10/13, 06/11/2022, 02/12/2022 Zoster (shingles) series for age 50+ Completed 10/14/2023, 06/11/2022 Influenza Vaccine Completed 01/18/2025, , 01/26/2023, Additional history exists RSV vaccine for adults or Completed 01/18/2025 Procedures Procedure Name Priority Date/Time Associated Diagnosis Comments URINE CULTURE Routine 01/27/2025 12:56 PM PHYSICAL THERAPIST AIDE Dysuria UA W/ SEDIMENT EXAM REFLEXED PER CRITERIA Routine 01/27/2025 12:56 PM PHYSICAL THERAPIST AIDE Dysuria URINE CULTURE Routine 01/18/2025 4:27 PM PHYSICAL THERAPIST AIDE Urinary frequency UA W/ SEDIMENT EXAM REFLEXED PER CRITERIA Routine 01/18/2025 4:27 PM PHYSICAL THERAPIST AIDE Urinary frequency IRON PLUS IRON BINDING CAP Routine 11/10/2024 12:09 PM CDT Overweight with body mass index (BMI) of 26 to 26.9 in adult S/P gastric bypass Encounter for vitamin deficiency screening VITAMIN B12 Routine 11/10/2024 12:09 PM CDT Overweight with body mass index (BMI) of 26 to 26.9 in adult S/P gastric bypass Encounter for vitamin deficiency screening VITAMIN B1 (THIAMINE) BLOOD Routine 11/10/2024 12:09 PM CDT Overweight with body mass index (BMI) of 26 to 26.9 in adult S/P gastric bypass Encounter for vitamin deficiency screening VITAMIN D 25 (DEFICIENCY) Routine 11/10/2024 12:09 PM CDT Overweight with body mass index (BMI) of 26 to 26.9 in adult S/P gastric bypass Encounter for vitamin deficiency screening FERRITIN Routine 11/10/2024 12:09 PM CDT Overweight with body mass index (BMI) of 26 to 26.9 in adult S/P gastric bypass Encounter for vitamin deficiency screening HEPATIC FUNCTION PANEL Routine 11/10/2024 12:09 PM CDT Overweight with body mass index (BMI) of 26 to 26.9 in adult S/P gastric bypass Encounter for vitamin deficiency screening BASIC METABOLIC PANEL Routine 11/10/2024 12:09 PM CDT [address]al insufficiency CT CHEST SCREENING LOW DOSE WO CONTRAST Routine 05/19/2024 1:41 PM CDT History of tobacco use XR MAMMO BILAT SCREENING Routine 04/15/2024 1:53 PM PHYSICAL THERAPIST AIDE Visit for screening mammogram LIPID PANEL W REFLEX MEASURED LDL Routine 04/13/2024 1:43 PM PHYSICAL THERAPIST AIDE Hyperlipidemia with target LDL less than 100 COLONOSCOPY 08/18/2022 9:46 AM CDT ANTI HIV 1/2 Routine 02/12/2022 11:21 AM PHYSICAL THERAPIST AIDE Screening for HIV (human immunodeficiency virus) ANTI HCV Routine 09/11/2021 4:21 PM CDT Encounter for hepatitis C screening test for low risk patient HPV HIGH RISK Routine 09/11/2021 4:00 PM CDT Well woman exam from Last 3 Months or Most Recently Relevant to Health Maintenance Results * URINE CULTURE (01/27/2025 12:56 PM PHYSICAL THERAPIST AIDE) Only the most recent of2 resultswithin the time period is included. CULTURE, URINE, ROUTINE SEE NOTE 01/29/2025 3:25 AM PHYSICAL THERAPIST AIDE [facility] Comment: CULTURE, URINE, ROUTINE Micro Number: [id number] Test Status: Final Specimen Source: Urine, clean catch Specimen Quality: Adequate Result: No Growth Urine URINE SPECIMEN / Unknown Non-Blood / Unknown 01/27/2025 12:56 PM PHYSICAL THERAPIST AIDE 01/27/2025 12:56 PM PHYSICAL THERAPIST AIDE Gail Guerrier MD MICROBIOLOGY Final Result Performing Organization Address [facility]/ZIP Co de Phone Number [facility] [address] [phone], * UA W/ SEDIMENT EXAM REFLEXED PER CRITERIA (01/27/2025 12:56 PM PHYSICAL THERAPIST AIDE) Only the most recent of2 resultswithin the time period is included. COLOR YELLOW YELLOW 01/28/2025 2:56 AM PHYSICAL THERAPIST AIDE [facility] SPECIFIC GRAVITY 1.008 1.001 - 1.035 01/28/2025 2:56 AM PHYSICAL THERAPIST AIDE [facility] PH 7.0 5.0 - 8.0 01/28/2025 2:56 AM PHYSICAL THERAPIST AIDE [facility] PROTEIN NEGATIVE NEGATIVE 01/28/2025 2:56 AM PHYSICAL THERAPIST AIDE [facility] GLUCOSE NEGATIVE NEGATIVE 01/28/2025 2:56 AM PHYSICAL THERAPIST AIDE [facility] KETONES NEGATIVE NEGATIVE 01/28/2025 2:56 AM PHYSICAL THERAPIST AIDE [facility] BILIRUBIN NEGATIVE NEGATIVE 01/28/2025 2:56 AM PHYSICAL THERAPIST AIDE [facility] OCCULT BLOOD NEGATIVE NEGATIVE 01/28/2025 2:56 AM PHYSICAL THERAPIST AIDE [facility] NITRITE NEGATIVE NEGATIVE 01/28/2025 2:56 AM PHYSICAL THERAPIST AIDE [facility] LEUKOCYTE ESTERASE NEGATIVE NEGATIVE 01/28/2025 2:56 AM PHYSICAL THERAPIST AIDE [facility] APPEARANCE CLEAR CLEAR 01/28/2025 2:56 AM PHYSICAL THERAPIST AIDE [facility] Urine URINE SPECIMEN / Unknown Non-Blood / Unknown 01/27/2025 12:56 PM PHYSICAL THERAPIST AIDE 01/27/2025 12:56 PM PHYSICAL THERAPIST AIDE Gail Guerrier MD URINE Final Result Performing Organization Address [facility]/ZIP Co de Phone Number [facility] [address] [address], * VITAMIN B1 (THIAMINE) BLOOD (11/10/2024 12:09 PM CDT) VITAMIN B1 (THIAMINE), BLOOD, LC/MS/MS 111 78 - 185 nmol/L 11/15/2024 2:54 PM CDT [employer] Comment: (Note) Vitamin supplementation within 24 hours prior to blood draw may affect the accuracy of the results. This test was developed and its analytical performance characteristics have been determined by [employer]. It has not been cleared or approved by FDA. This assay has been validated pursuant to the CLIA regulations and is used for clinical purposes. [facility] [address] [address],[address] [facility] [address] Halie Cortez MD, PhD Blood BLOOD SPECIMEN / Unknown [facility] / Unknown 11/10/2024 12:09 PM CDT 11/10/2024 12:09 PM CDT Gail Denney POWER NUT RUNNER OPERATOR SEND OUTS Final Result [employer] [employer] [address] [address], * VITAMIN D 25 (DEFICIENCY) (11/10/2024 12:09 PM CDT) Pathologist [facility] VITAMIN D,25-OH,TOTAL,IA 53 30 - 100 ng/mL 11/11/2024 5:00 AM CDT [employer] Comment: Vitamin D Status 25-OH Vitamin D: Deficiency: <20 ng/mL Insufficiency: 20 - 29 ng/mL Optimal: > or = 30 ng/mL For 25-OH Vitamin D testing on patients on D2-supplementation and patients for whom quantitation of D2 and D3 fractions is required, the [facility]ure[facility](TM) 25-OH VIT D, (D2,D3), LC/MS/MS is recommended: order code [id number] (patients >2yrs). See Note 1 Note 1 For additional information, please refer to http://education.[employer]/faq/LDR255 (This link is being provided for informational/ educational purposes only.) Blood BLOOD SPECIMEN / Unknown [facility] / Unknown 11/10/2024 12:09 PM CDT 11/10/2024 12:09 PM CDT us Gail Denney POWER NUT RUNNER OPERATOR SEND OUTS Final Result Performing Organization Address [facility]/ZIP Co de Phone Number [facility] [address] [address], [place] [phone] * IRON PLUS IRON BINDING CAP (11/10/2024 12:09 PM CDT) Pathologist [facility] IRON, TOTAL 88 45 - 160 mcg/dL 11/11/2024 5:00 AM CDT [facility] IRON BINDING CAPACITY 253 250 - 450 mcg/dL (calc) 11/11/2024 5:00 AM CDT [facility] % SATURATION 35 16 - 45 % (calc) 11/11/2024 5:00 AM CDT [facility] Blood BLOOD SPECIMEN / Unknown [facility] / Unknown 11/10/2024 12:09 PM CDT 11/10/2024 12:09 PM CDT us Gail Denney POWER NUT RUNNER OPERATOR CHEMISTRY Final Result Performing Organization Address [facility]/ZIP Co de Phone Number [facility] [address] [address], [place] [phone] * FERRITIN (11/10/2024 12:09 PM CDT) [facility] FERRITIN 65 16 - 232 ng/mL 11/11/2024 5:00 AM CDT [facility] Blood BLOOD SPECIMEN / Unknown [facility] / Unknown 11/10/2024 12:09 PM CDT 11/10/2024 12:09 PM CDT us Gail Denney POWER NUT RUNNER OPERATOR CHEMISTRY Final Result Performing Organization Address [facility]/ZIP Co de Phone Number [facility] [address] [address], [place] [phone] * (ABNORMAL) VITAMIN B12 (11/10/2024 12:09 PM CDT) [facility] VITAMIN B12 1431(H) 200 - 1100 pg/mL 11/11/2024 5:00 AM CDT [facility] Blood BLOOD SPECIMEN / Unknown [facility] / Unknown 11/10/2024 12:09 PM CDT 11/10/2024 12:09 PM CDT us Gail Denney NP CHEMISTRY Final Result [facility] [address] [place] [address], * HEPATIC FUNCTION PANEL (11/10/2024 12:09 PM CDT) ALBUMIN 4.4 3.6 - 5.1 g/dL 11/11/2024 5:00 AM CDT [facility] PROTEIN, TOTAL 7.1 6.1 - 8.1 g/dL 11/11/2024 5:00 AM CDT [facility] BILIRUBIN, TOTAL 0.4 0.2 - 1.2 mg/dL 11/11/2024 5:00 AM CDT [facility] BILIRUBIN, DIRECT 0.1 < OR = 0.2 mg/dL 11/11/2024 5:00 AM CDT [facility] BILIRUBIN, INDIRECT 0.3 0.2 - 1.2 mg/dL (calc) 11/11/2024 5:00 AM CDT [facility] ALKALINE PHOSPHATASE 101 37 - 153 U/L 11/11/2024 5:00 AM CDT [facility] ALT 16 6 - 29 U/L 11/11/2024 5:00 AM CDT [facility] AST 20 10 - 35 U/L 11/11/2024 5:00 AM CDT [facility] GLOBULIN 2.7 1.9 - 3.7 g/dL (calc) 11/11/2024 5:00 AM CDT [facility] ALBUMIN/GLOBULIN RATIO 1.6 1.0 - 2.5 (calc) 11/11/2024 5:00 AM CDT [facility] Blood BLOOD SPECIMEN / Unknown [facility] / Unknown 11/10/2024 12:09 PM CDT 11/10/2024 12:09 PM CDT us Gail Denney NP CHEMISTRY Final Result Performing Organization Address [facility]/ZIP Co de Phone Number [facility] [address] [place] [address], [place] [phone] * BASIC METABOLIC PANEL (11/10/2024 12:09 PM CDT) SODIUM 138 135 - 146 mmol/L 11/11/2024 5:00 AM CDT [facility] POTASSIUM 4.0 3.5 - 5.3 mmol/L 11/11/2024 5:00 AM CDT [facility] CARBON DIOXIDE 25 20 - 32 mmol/L 11/11/2024 5:00 AM CDT [facility] GLUCOSE 86 65 - 99 mg/dL 11/11/2024 5:00 AM CDT [facility] Comment: Fasting reference interval CALCIUM 9.5 8.6 - 10.4 mg/dL 11/11/2024 5:00 AM CDT [facility] CREATININE 0.91 0.50 - 1.03 mg/dL 11/11/2024 5:00 AM CDT [facility] BUN/CREATININE RATIO SEE NOTE: 6 - 22 (calc) 11/11/2024 5:00 AM CDT [facility] Comment: Not Reported: BUN and Creatinine are within reference range. EGFR 73 > OR = 60 mL/min/1. 73m2 11/11/2024 5:00 AM CDT [facility] UREA NITROGEN (BUN) 9 7 - 25 mg/dL 11/11/2024 5:00 AM CDT [facility] ELECTROLYTE BALANCE 8 7 - 17 mmol/L (calc) 11/11/2024 5:00 AM CDT [facility] CHLORIDE 105 98 - 110 mmol/L 11/11/2024 5:00 AM CDT [facility] Blood BLOOD SPECIMEN / Unknown [facility] / Unknown 11/10/2024 12:09 PM CDT 11/10/2024 12:09 PM CDT Gail Guerrier MD CHEMISTRY Final Result Performing Organization Address [facility]/ZIP Co de Phone Number [facility] [address] [place] [address], * CT CHEST SCREENING LOW DOSE WO CONTRAST (05/19/2024 1:41 PM CDT) Anatomical Region Laterality Modality Computed Tomogra phy Impressions 05/22/2024 4:24 PM CDT No lung nodules or masses. Lung rads category 1, negative. Continue annual screening with low-dose chest CT in 12 months. Please note that all CT scans at this facility use dose modulation, iterative reconstruction and/or weight-based dosing when appropriate to reduce radiation dose to as low as reasonably achievable. Dictated by: Gabe Mesa MD @05/21/2024 5:03:09 PM Neuroradiologist Narrative 05/22/2024 4:24 PM CDT For Patients: As a result of the Cures Act, medical imaging exams and procedure reports are released immediately into your electronic medical record. You may view this report before your referring provider. If you have questions, please contact your health care provider. CT CHEST SCREENING LOW-DOSE WITHOUT CONTRAST 05/19/2024 INDICATION: Lung cancer screening. TECHNIQUE: Low-dose noncontrast CT images of the chest. Dose reduction techniques used. COMPARISON: CT chest 06/30/2022. FINDINGS: The lungs are underinflated. No focal consolidation, pleural effusion, or pneumothorax. No pulmonary nodules. Heart size is normal. No pericardial effusion. Coronary artery atherosclerotic calcifications. No mediastinal or hilar lymphadenopathy. Postsurgical changes of gastric bypass. Cholecystectomy. Multilevel thoracic spondylosis. No aggressive osseous lesions. us Gail Guerrier MD CT Final Result * XR MAMMO BILAT SCREENING (04/15/2024 1:53 PM PHYSICAL THERAPIST AIDE) Anatomical Region Laterality Modality BREASTS, Breast Left, Breast Right Bilateral Mammography Impressions 04/18/2024 8:08 AM PHYSICAL THERAPIST AIDE There is no radiographic evidence for malignancy. Recommend annual mammograms. MAMMOGRAM ASSESSMENT: ACR 1 Negative PATIENTS: You will also receive a letter with your examination results in an easy to read format. If you have questions about your results, please contact your referring provider. Narrative 04/18/2024 8:08 AM PHYSICAL THERAPIST AIDE For Patients: As a result of the 21st Century Cures Act, medical imaging exams and procedure reports are released immediately into your electronic medical record. You may view this report before your referring provider. If you have questions, please contact your health care provider. XR MAMMO BILAT SCREENING [[id number]] CLINICAL HISTORY: This is an asymptomatic 58 y.o. patient. INDICATION FOR EXAM: Mammogram Screening. TECHNIQUE: CC & MLO views were obtained. This study was evaluated with the assistance of Computer-Aided Detection. COMPARISON FILM: Yes 02/13/23 [facility] FINDINGS: There are scattered areas of fibroglandular density. There are no dominant masses, suspicious micro calcifications or areas of architectural distortion. us Gail Guerrier MD MAMMO Final Result * (ABNORMAL) LIPID PANEL W REFLEX MEASURED LDL (04/13/2024 1:43 PM PHYSICAL THERAPIST AIDE) Pathologist [facility] CHOLESTEROL, TOTAL 118 <200 mg/dL [facility] HDL CHOLESTEROL 41(L) > OR = 50 mg/dL [facility] TRIGLYCERIDES 148 <150 mg/dL [facility] LDL-CHOLESTEROL 54 mg/dL (calc) [facility] Comment: Reference range: <100 Desirable range <100 mg/dL for primary prevention; <70 mg/dL for patients with CHD or diabetic patients with > or = 2 CHD risk factors. LDL-C is now calculated using the Krish-Trevizo calculation, which is a validated novel method providing better accuracy than the Friedewald equation in the estimation of LDL-C. Krish SS et al. MARGIE. 2013;310(19): 6134-2794 (http://education.[employer]/faq/BJP594) CHOL/HDLC RATIO 2.9 <5.0 (calc) [facility] NON HDL CHOLESTEROL 77 <130 mg/dL (calc) [facility] Comment: For patients with diabetes plus 1 major ASCVD risk factor, treating to a non-HDL-C goal of <100 mg/dL (LDL-C of <70 mg/dL) is considered a therapeutic option. Blood BLOOD SPECIMEN / Unknown 04/13/2024 1:43 PM PHYSICAL THERAPIST AIDE 04/13/2024 1:43 PM PHYSICAL THERAPIST AIDE Narrative [facility] - 04/14/2024 5:43 AM PHYSICAL THERAPIST AIDE FASTING:NO FASTING: NO Gail Guerrier MD CHEMISTRY Final Result [facility] [address] [place] [address], [facility] [address] [place] [address] * COLONOSCOPY (08/18/2022 9:46 AM CDT) 08/18/2022 9:46 AM CDT Narrative Transcriptions Mackenzie Ray DO - 08/18/2022 11:26 AM CDT Patient Name: Meagan Roberts Procedure Date: 08/18/2022 Gender: Female Date of : 1965 Admit Type: Ambulatory Procedure: Colonoscopy Proceduralist: Mackenzie Ray MD Referring MD: Gail Guerrier Indications/Pre-Op Diagnosis: Screening for colorectal malignant neoplasmdue to positive Cologuard test, Colon cancer screening in patient at increased risk:Family history of 1st-degree relative with colon polyps before age 60 years, Screeningpatient at increased risk: Family history ofcolorectal cancer in multiple 1st-degree relatives Medications: Propofol per Anesthesia, MonitoredAnesthesia Care Procedure Description: The patient had risks, benefits and alternatives explained to andgave informed consent. The patient had a stable cardiopulmonary status and judged an adequate candidate for conscious sedation. The endoscope [id number] was passed through the anus andadvanced to the cecum, identified by appendiceal orifice and ileocecal valve.The colonoscopy was performed without difficulty. The patient toleratedthe procedure well. The quality of the bowel preparation was excellent.The ileocecal valve, appendiceal orifice, and rectum were photographed. Complications: No immediate complications. Estimated blood loss: Minimal. Estimated Blood Loss & Specimen: Estimated blood loss was minimal. Specimen collected - Yes and sent to Laboratory Findings: Skin tags were found on perianal exam. A few small-mouthed diverticula were found in the sigmoid colon. Nonbleeding ulcerated mucosa with no stigmata of recent bleeding were present at the splenic flexure. Biopsies were taken with a coldforceps for histology. Verification of patient identification for thespecimen was done. Estimated blood loss was minimal. The exam was otherwise without abnormality. Impressions/Post-Op Diagnosis: - Perianal skin tags found on perianal exam. - Diverticulosis in the sigmoid colon. - Mucosal ulceration. Biopsied. - The examination was otherwise normal. Recommendation: - Patient has a contact number available for emergencies. The signsand symptoms of potential delayed complications were discussed with the patient. Return to normal activities tomorrow. Written discharge instructions were provided to the patient. - Discharge patient to home (ambulatory). - Resume previous diet. - Continue present medications. - Await pathology results. - Repeat colonoscopy in 5 years for surveillance based on pathology results. Mackenzie Ray MD 08/18/2022 11:26:41 AM This report has been signed electronically. Note Initiated On: 08/18/2022 9:46 AM us Mackenzie Ray DO PROCEDURE ORD Final Res ult * ANTI HIV 1/2 (02/12/2022 11:21 AM PHYSICAL THERAPIST AIDE) HIV-1/HIV-2 ANTIBODY Non-Reacti ve Non-Reacti ve 02/14/2022 5:50 PM PHYSICAL THERAPIST AIDE [facility] Comment:HIV-1 p24 and HIV-1/ HIV-2 Ab not detected. Blood BLOOD SPECIMEN / Unknown Venipuncture / Unknown 02/12/2022 11:21 AM PHYSICAL THERAPIST AIDE 02/12/2022 11:22 AM PHYSICAL THERAPIST AIDE Gail Guerrier MD SEND OUTS Final Result [facility] [address] [place] [address], * ANTI HCV (09/11/2021 4:21 PM CDT) HEPATITIS C ANTIBODY Non-React cuong Non-React cuong 09/12/2021 6:27 PM CDT [facility] Comment:Antibodies to HCV no t detected; does not exclude the possibility of exposure to HCV. Blood BLOOD SPECIMEN / Unknown Venipuncture / Unknown 09/11/2021 4:21 PM CDT 09/11/2021 4:23 PM CDT Gail Guerrier MD SEND OUTS Final Result Performing Organization Address [facility] Co de Phone Number [facility] [address] [place] [address], [place] * HPV HIGH RISK (09/11/2021 4:00 PM CDT) TYPE 16 Negative Negative 09/17/2021 6:00 AM CDT [facility] TYPE 18 Negative Negative 09/17/2021 6:00 AM CDT [facility] OTHER HIGH RISK TYPES Negative Negative 09/17/2021 6:00 AM CDT [facility] Other (Cervical) Non-Blood / Unknown 09/11/2021 4:00 PM CDT 09/13/2021 3:16 PM CDT Narrative [facility] - 09/17/2021 6:00 AM CDT HPV types 16, 18, 31, 33, 35, 39, 45, 51, 52, 56, 58, 59, 66 and 68 DNA were undetectable or below the pre-set threshold. Methodology: Ilda Vick 4800 HPV Test Gail Guerrier MD MICROBIOLOGY Final Result [facility] [address] [place] [address], from Last 3 Months or Most Recently Relevant to Health Maintenance Insurance [facility] Advance Directives * Full Code (Latest Code Status on File) Date Activated Date Inactivated Comments 11/27/2023 9:26 PM 12/03/2023 4:09 PM Question Answer Comments Code Status Discussion: Reviewed Preferences * Full Code Date Activated Date Inactivated Comments 11/05/2023 8:15 AM 11/06/2023 3:11 PM Question Answer Comments Code Status Discussion: Reviewed Preferences * Full Code Date Activated Date Inactivated Comments 08/18/2022 9:12 AM 08/18/2022 1:32 PM Question Answer Comments Code Status Discussion: Discussed * Full Code Date Activated Date Inactivated Comments 04/28/2019 9:06 PM 04/30/2019 4:53 PM * DNR Date Activated Date Inactivated Comments 04/04/2016 7:18 PM 04/05/2016 7:22 PM Question Answer Comments Code Status Discussion: Discussed Care Teams Windows Security Analyst Relationship Specialty Start Date End Date Gail Guerrier MD [address] [place] [address] PCP - General Family Practice 04/26/15 Jael Justice, [facility] [address] [facility] [place] [place] [address] Lithograph Press Feeder 10/16/[address] [facility] [place] [address] Staff Submarine Warfare Officer Whale Fisherman 05/11/19 Shauna Mcgill MD [address] [place] [address] Psychiatry 02/16/23 Viktor Webb MD [address] [place] [address] Surgery - General 02/16/23 Amarilys Poole, ZAC [address] [place] [address] Registered Nurse 02/16/[address] [place] [address] Whale Fisherman 02/16/23 Gail Denney, POWER NUT RUNNER OPERATOR [address] [facility] [address] [place] [address] Nurse Practitioner - Acute Care 05/04/24
[2025-02-01 11:20] VITALS: BP 146/91; PULSE 88; RESP 20; TEMP 36.4; O2SAT 99; BMI 25.2
--- NOTE | 2025-02-01 11:59 | CRLHL7_ITS ---
For Patients: As a result of the Century Cures Act, medical imaging exams and procedure reports are released immediately into your electronic medical record. You may view this report before your referring provider. If you have questions, please contact your health care provider. INDICATION: Periumbilical pain, melena, history of ulcers, history of gastric bypass. TECHNIQUE: CT abdomen and pelvis acquired with 77 cc Isovue 370 IV contrast. COMPARISON: November 19, 2023. FINDINGS: Lower chest: Scattered atelectasis. Liver: Unremarkable. Normal in size and attenuation. No suspicious masses. Gallbladder and bile ducts: Prior cholecystectomy. Pancreas: Unremarkable. No mass or inflammation. Spleen: Unremarkable. Normal in size. No masses. Adrenal glands: Unremarkable. No nodules. Kidneys: Tiny cortical hypodensities, too small to characterize.. No suspicious masses, stones, or hydronephrosis. GI tract: Gastric bypass. Some fluid in the proximal colon. No bowel obstruction. Colonic diverticulosis without diverticulitis. Normal appendix. Vasculature: Aortoiliac arterial calcifications. Abdominal aorta is normal in caliber. Mesenteric arteries are patent. Lymph nodes: No lymphadenopathy. Peritoneum/Abdominal Wall: Tiny fact containing umbilical hernia with trace fluid, also seen on prior study. No sign of mass or infiltration. No free air or significant free fluid. Pelvis: Unremarkable. Bones: Degenerative changes. Minimal anterolisthesis of L4 on L5. Minimal retrolisthesis of L5 on S1 IMPRESSION: Some fluid in the proximal colon which could be seen with diarrheal illness/low-grade colitis. Otherwise, no acute intra-abdominal/pelvic abnormality. Tiny fat containing umbilical hernia with trace fluid, also seen on prior study. Postsurgical changes of gastric bypass. No bowel obstruction. Please note that all CT scans at this facility use dose modulation, iterative reconstruction, and/or weight-based dosing when appropriate to reduce radiation dose to as low as reasonably achievable. Dictated by Edmund Parker MD @ 02/01/2025 1:12:04 PM (Electronically Signed)
--- OUTSIDE RECORDS SUMMARY | 2025-02-01 12:03 | XMS_ITS | CCD ---
Author Organization Unknown Care Team Providers Care Laser Print Operator Name Role Phone Electrical Engineering Technician, [place] Primary Care Provider Unava ilable Unavailable Chronic Care Management Unavaila ble Summary Purpose DataExchange Insurance Providers Payer name Policy type / Coverage type Covered green party ID Effective Begin Date Effective End Date [employer] Commercial Insurance [id number] Unknown Unkn own Family History Family History data not found Medication Administered No Medication Administered data Medical Equipment No Medical Equipment data Assessments No Assessment data Reason For Visit No Reason For Visit data Review of Systems No Review of Systems data Physical Exam No Physical Exam data History of Present Illness No History of Present Illness data Advance Directives No Advance Directive data
--- NOTE | 2025-02-01 12:07 | ED.ABDPAIN ---
HPI - Abdominal Pain General Date Seen: 02/01/25 Chief Complaint: Abdominal Pain Stated Complaint: abdominal pain, body fatigue Time Seen by Provider: 02/01/25 11:12 Source: patient Mode of arrival: ambulatory Limitations: no limitations History of Present Illness HPI narrative: Patient is a 59-year-old female presenting to the emergency department for periumbilical abdominal pain. She has a history of gastric bypass surgery on 11/05/2023, hypothyroidism, type 2 diabetes presenting to the emergency department for periumbilical abdominal pain. She states the pain has been going on for 5 days and is getting worse. She states the pain is severe. She states this feels similar to her previous abdominal pain 1 year ago when she was admitted at [place]. This was a few weeks after her gastric bypass surgery. She states she had and esophageal all cervical based on chart review of epic appears it was gastritis. There were some ulcerations at the anastomosis site of the gastric bypass site. She states she has also noticed black tarry stools for several days consistent with the last year when she had similar symptoms. She does state last year the symptoms are more in the epigastric region she states this is lower the abdomen. She denies having a stool for couple days now she states. She states she feels backed up. She also feels more bloated. Also complaining of metallic taste in the back of her throat. Tried Pepcid couple days ago with no relief. Has not been taking any antacids. Denies fevers, chills, OB chest pain, shortness of breath, headache, lightheadedness, dizziness, weakness, numbness. Denies any recent sick contacts. Does states she just finished a course of antibiotics for UTI. States she has had repeat urinalysis since then that has been negative. Related Data Home Medications ?Medication ?Instructions ?Recorded ?Confirmed amitriptyline 100 mg tablet 100 mg PO QPM 08/28/23 08/28/23 amitriptyline 50 mg tablet mg PO 08/28/23 08/28/23 blood-glucose sensor (Dexcom G6 #1 ea 08/28/23 08/28/23 Sensor device) blood-glucose transmitter (Dexcom #1 ea 08/28/23 08/28/23 G6 Transmitter device) calcium citrate mg PO 08/28/23 08/28/23 cholecalciferol (vitamin D3) 125 125 mcg PO DAILY 08/28/23 02/01/25 mcg (5,000 unit) capsule diclofenac sodium 1 % topical gel 1 ea topical QID 08/28/23 02/01/25 emollient (Vanicream topical) 1 applic topical BID 08/28/23 02/01/25 exenatide microspheres 2 mg/0.85 mg subcut 08/28/23 08/28/23 mL subcutaneous auto-injector (Arturo Khan) famotidine 40 mg tablet 40 mg PO DAILY 08/28/23 08/28/23 furosemide 40 mg tablet 40 mg PO BID 08/28/23 08/28/23 gabapentin 300 mg capsule 300 mg PO 3XD 08/28/23 08/28/23 hydroxyzine pamoate 50 mg capsule mg PO BID 08/28/23 08/28/23 levothyroxine 150 mcg tablet 150 mcg PO DAILY 08/28/23 02/01/25 omeprazole 40 mg capsule,delayed 40 mg PO DAILY 08/28/23 08/28/23 release pen needle, diabetic 31 gauge x #1,200 ea 08/28/23 08/28/2305/15 (BD Ultra-Fine Mini Pen Needle) prazosin 5 mg capsule mg PO 08/28/23 08/28/23 quetiapine 300 mg tablet 300 mg PO BID 08/28/23 02/01/25 rosuvastatin 5 mg tablet 5 mg PO DAILY 08/28/23 08/28/23 tizanidine 2 mg tablet 2 mg PO 3XD 08/28/23 08/28/23 triamcinolone acetonide 0.1 % 1 applic topical BID-TID 08/28/23 02/01/25 topical ointment triamcinolone acetonide 0.5 % topical DAILY 08/28/23 08/28/23 topical ointment ondansetron 4 mg disintegrating mg PO 11/19/23 tablet FLINTSTONES 02/01/25 clindamycin phosphate 2 % vaginal 1 appful vaginal QPM 02/01/25 02/01/25 cream cyanocobalamin (vitamin B-12) mcg sublingual 02/01/25 1,000 mcg sublingual lozenge fluoxetine 20 mg capsule mg PO 02/01/25 omeprazole 20 mg capsule,delayed 20 mg PO DAILY 02/01/25 02/01/25 release polyethylene glycol 3350 17 g PO 02/01/25 gram/dose oral powder prazosin 1 mg capsule 1 - 5 mg PO QPM nightmares 02/01/25 02/01/25 semaglutide 1 mg/dose (4 mg/3 mL) 1 mg subcut 02/01/25 subcutaneous pen injector (Ozempic) Previous Rx's ?Medication ?Instructions ?Recorded hydrocortisone 2.5 % topical cream 1 applic topical TID PRN rash #[id number] 08/28/23 grams Allergies Allergy/AdvReac Type Severity Reaction Status Date / Time hydrochlorothiazide Allergy Severe Verified 11/19/23 15:59 Review of Systems Status of ROS Reports: 10 or more systems reviewed and unremarkable except as noted in History and below PFSH PFS Social History Smoking Status: Never smoker How often do you have a drink containing alcohol: never AUDIT-C Alcohol total score: 0 Non-prescribed substance use: denies use Exam Narrative: Exam Narrative: Const: Well-nourished, Well-developed, in moderate distress Eyes: PERRL, no conjunctival injection, and symmetrical lids HENT: Atraumatic external nose and ears. Moist mucous membranes. Neck: Symmetric, trachea midline, No thyromegaly. CVS: RRR, No murmurs or gallops. Peripheral pulses 2+ and equal in all extremities RESP: Unlabored respiratory effort. Clear to auscultation bilaterally. GI: Periumbilical tenderness, mild bilateral upper quadrant discomfort. No lower abdominal tenderness. Nondistended, No rebound or guarding. No CVA tenderness MSK:Extremities w/o deformity, Normal Active ROM Skin: Warm, Dry. No rashes or lesions. Neuro: Normal Muscle tone, No focal neurological deficits. Psych: Awake, Alert, & Oriented x3. Appropriate mood and affect. Const: Vital Signs, click to edit/add: Vital Signs - 24 hr 02/01/25 11:20 Temperature 97.6 F Pulse Rate [Pulse Oximeter] 88 Respiratory Rate 20 Blood Pressure [Ri ght Upper Arm] 146/91 H Pulse Oximetry 99 Oxygen Delivery Me thod Room Air Course Vital Signs Vital signs: Initial Vital Signs Temperature 97.6 F 02/01/25 11:20 Temperature Source Temporal Artery Scan 02/01/25 11:20 Pulse Rate 88 12/03/25 11:20 Respiratory Rate 20 02/01/25 11:20 Blood Pressure 146/91 H 02/01/25 11:20 Blood Pressure Mean 109 H 02/01/25 11:20 Blood Pressure Position Sitting 02/01/25 11:20 Pulse Oximetry 99 02/01/25 11:20 Oxygen Delivery Method Room Air 02/01/25 11:20 Vital Signs Temperature 97.6 F 02/01/25 11:20 Pulse Rate 88 02/01/25 11:20 Respiratory Rate 20 02/01/25 11:20 Blood Pressure 146/91 H 02/01/25 11:20 Pulse Oximetry 99 02/01/25 11:20 Oxygen Delivery Method Room Air 02/01/25 11:20 Temperature 97.6 F 02/01/25 11:20 Pulse Rate 88 02/01/25 11:20 Respiratory Rate 20 02/01/25 11:20 Blood Pressure 146/91 H 02/01/25 11:20 Pulse Oximetry 99 02/01/25 11:20 Oxygen Delivery Method Room Air 02/01/25 11:20 Medications Administered Medications: Discontinued Medications Generic Name Dose Route Start Last Admin Trade Name Freq PRN Reason Stop Dose Admin Lidocaine/Aluminum/Magnesium/Simeth 30 ml 02/01/25 11:59 02/01/25 12:56 Gi Cocktail (Visc Lido/Antacid) 30 Ml PO 02/01/25 12:00 Not Given ONCE ONE MDM - Abdominal Pain MDM Narrative Medical decision making narrative: Patient is a 59-year-old female presenting to the emergency department for abdominal pain. Differential this time includes peptic ulcer, gastritis, gastroenteritis C, gallbladder/biliary disease, pancreatitis, small-bowel obstruction. Will also order EKG and troponin for possible abnormal presentation myocardial infarction. CBC, CMP, viral swabs, lipase, urinalysis all ordered. Also give her GI cocktail to see if it helps with symptoms. Patient's lab work shows no acute concerning abnormalities. EKG interpreted by myself shows no concerning findings. Initial troponin within normal limits. Considering like the symptoms I do not believe repeat troponin is necessary. Her hemoglobin is within normal limits and around her baseline. Has not had melena for over 24 hours now. Viral swabs are negative. Liver function tests within normal limits and I have very little concern about firs still bleeds. CT scan interpreted by myself and the radiologist shows colitis but no other acute intra-abdominal abnormalities. Patient states she has had issues with colitis before. I spoke to her about doing a rectal exam for fecal occult blood but she declined. This seems reasonable as she states she had melena but has not had a bowel movement for few days. A few it is reasonable to take her word that she had black tarry stools. This very well could be causing her symptoms but I do recommend she has repeat EGD as she was supposed to have January of last year which she did not do. This will be ordered. Spoke to her about return precautions. She is agreeable to this plan. She does state she takes omeprazole daily. Lab Data Labs: Lab Results 02/01/25 02/01/25 Range/Units 11:59 12:30 WBC 6.36 (4.50-11.00) K/uL RBC 4.31 (4.00-5.20) m/uL Hgb 13.0 (12.0-16.0) gm/dL Hct 38.8 (33.0-51.0) % MCV 90 (80-100) fL MCH 30 (26-34) pg MCHC 34 (32-36) gm/dL RDW Coeff of Benson 12.4 (11.5-15.5) % Plt Count 233 (140-440) K/uL Neut % (Auto) 45.1 (42.0-72.0) % Lymph % (Auto) 44.7 H (20-44) % [place] % (Auto) 8.2 (0.0-11.0) % Eos % (Auto) 1.7 (0.0-7.0) % Baso % (Auto) 0.3 (0.0-3.0) % Neut # (Auto) 2.87 (1.7-7.0) K/uL Lymph # (Auto) 2.80 (0.90-2.90) K/uL [place] # (Auto) 0.50 (0.00-0.90) K/UL Eos # (Auto) 0.11 (0.00-0.50) K/uL Baso # (Auto) 0.02 (0.00-0.30) K/uL Abs Immat Gran (auto) 0.00 (0.00-0.30) K/uL Imm/Tot Granulo (auto) 0.0 % Sodium 137 (135-149) mmol/L Potassium 3.9 (3.6-5.1) mmol/L Chloride 106 (96-114) mmol/L Carbon Dioxide 25 (20-32) mmol/L Anion Gap 6 L (7-15) mEq/L BUN 8 (7-30) mg/dL Creatinine 0.7 (0.5-1.5) mg/dL Estimated Creat Clear 82.01 Estimated GFR 100 ml/min Glucose 83 (60-115) mg/dL Calcium 9.4 (8.4-10.6) mg/dL Total Bilirubin 0.3 (0.1-1.5) mg/dL AST 32 (12-35) U/L ALT 25 (4-35) U/L Alkaline Phosphatase 82 (40-150) U/L POC Troponin I High Sensi 2.8 L (2.9-13.0) pg/mL Total Protein 7.1 (6.0-8.3) g/dL Albumin 4.2 (3.3-5.0) g/dL Lipase 328 H (23-300) U/L SARS-CoV-2 (PCR) Negative SARS-CoV-2 (Negative) Influenza Type A (PCR) Negative PCR FLU A (Negative) Influenza Type B (PCR) Negative PCR FLU B (Negative) RSV (PCR) Negative PCR RSV (Negative) POC Creatinine 0.8 (0.6-1.3) mg/dl Imaging Data CT scan abdomen and pelvis: Attestation: I have reviewed the pertinent imaging results. Radiologist's impression: Some fluid in the proximal colon which could be seen with diarrheal illness/low-grade colitis. Otherwise, no acute intra-abdominal/pelvic abnormality. Tiny fat containing umbilical hernia with trace fluid, also seen on prior study. Postsurgical changes of gastric bypass. No bowel obstruction. Please note that all CT scans at this facility use dose modulation, iterative reconstruction, and/or weight-based dosing when appropriate to reduce radiation dose to as low as reasonably achievable. Dictated by Edmund Parker MD @ 02/01/2025 1:12:04 PM ECG Data Attestation: I personally reviewed and interpreted this ECG as follows: Prior ECG tracings: not available for review Interpretation: Normal sinus rhythm with rate 79 beats per minute, normal intervals, normal axis, no ST or T-wave abnormalities. There was some artifact. Discharge Plan Discharge Clinical Impression: Colitis Patient Disposition: Home, Self-Care Condition: Stable Instructions: Colitis (ED), Clear Liquid Diet (ED) Additional Instructions: He start developing lightheadedness, weakness, pale scan, worsening bleeding or any other concerning symptoms return to emergency department immediately for re-evaluation. I ordered an outpatient endoscopy for you. This is to look down at throat an at your stomach and esophagus again. They will call you for scheduling. Recommend a clear liquid diet for the next few days. This will help with symptoms. Prescriptions: No Action famotidine 40 mg tablet 40 mg PO DAILY furosemide 40 mg tablet 40 mg PO BID Bydureon BCise 2 mg/0.85 mL auto-injector subcut calcium citrate 250 mg calcium tablet PO rosuvastatin 5 mg tablet 5 mg PO DAILY cholecalciferol (vitamin D3) 125 mcg (5,000 unit) capsule 125 mcg PO DAILY amitriptyline 100 mg tablet 100 mg PO QPM gabapentin 300 mg capsule 300 mg PO 3XD levothyroxine 150 mcg tablet 150 mcg PO DAILY prazosin 5 mg capsule PO amitriptyline 50 mg tablet PO omeprazole 40 mg capsule,delayed release(DR/EC) 40 mg PO DAILY hydroxyzine pamoate 50 mg capsule PO BID quetiapine 300 mg tablet 300 mg PO BID (DME) Dexcom G6 Sensor Device See Rx Instructions .ROUTE Q10D Qty: 1 Rx Instructions: As directed emollient [Vanicream] Cream 1 applic topical BID triamcinolone acetonide 0.5 % ointment topical DAILY (DME) Dexcom G6 Transmitter Device See Rx Instructions .ROUTE .MEDSUPPLY Qty: 1 Patient Comments: [NO ORIGINAL SIG] Rx Instructions: As directed (DME) pen needle, diabetic [BD Ultra-Fine Mini Pen Needle] 31 gauge x 3/16 needle See Rx Instructions .ROUTE QID Qty: 1200 Rx Instructions: As directed tizanidine 2 mg tablet 2 mg PO 3XD triamcinolone acetonide 0.1 % ointment 1 applic topical BID-TID diclofenac sodium 1 % gel 1 ea topical QID hydrocortisone 2.5 % cream 1 applic topical TID PRN (Reason: rash) Qty: 454 0RF ondansetron 4 mg tablet,disintegrating PO omeprazole 20 mg capsule,delayed release(DR/EC) 20 mg PO DAILY clindamycin phosphate 2 % cream 1 appful vaginal QPM polyethylene glycol 3350 17 gram/dose powder PO fluoxetine 20 mg capsule PO Ozempic 1 mg/dose (4 mg/3 mL) pen injector 1 mg subcut FLINTSTONES prazosin 1 mg capsule 1 - 5 mg PO QPM cyanocobalamin (vitamin B-12) 1,000 mcg lozenge sublingual Follow Up/Referrals: Gail Guerrier MD [Primary Care Provider, Family Practice] [facility] Info Instructions
[2025-02-01 12:45] LABS: Hematocrit* 38.8 % (33.0-51.0); Hemoglobin* 13.0 gm/dL (12.0-16.0); Immature Granulocytes Abs Auto 0.00 K/uL (0.00-0.30); Immature Granulocytes Pct Auto 0.0 %; Mean Corpuscular HGB Conc 34 gm/dL (32-36); Mean Corpuscular Hemoglobin 30 pg (26-34); Mean Corpuscular Volume 90 fL (80-100); RDW Coefficient of Variation % 12.4 % (11.5-15.5); Red Blood Count* 4.31 m/uL (4.00-5.20); White Blood Count* 6.36 K/uL (4.50-11.00)
[2025-02-01 12:51] LABS: Lymphocytes Absolute Auto 2.80 K/uL (0.90-2.90); Slide Review Reflex No
[2025-02-01 13:14] LABS: Albumin* 4.2 g/dL (3.3-5.0); Chloride* 106 mmol/L (96-114); Potassium* 3.9 mmol/L (3.6-5.1); Sodium* 137 mmol/L (135-149)
[2025-02-01 13:17] LABS: Alanine Aminotransferase* 25 U/L (4-35); Alkaline Phosphatase* 82 U/L (40-150); Anion Gap 6 mEq/L (7-15); Aspartate Amino Transferase* 32 U/L (12-35); Bilirubin Total* 0.3 mg/dL (0.1-1.5); Blood Urea Nitrogen* 8 mg/dL (7-30); Carbon Dioxide* 25 mmol/L (20-32); Creatinine* 0.7 mg/dL (0.5-1.5); Est. Creatinine Clearance* 82.01; Estimated Glomerular Filt Rate 100 ml/min; Total Protein* 7.1 g/dL (6.0-8.3)
[2025-02-01 13:18] LABS: Calcium* 9.4 mg/dL (8.4-10.6); Glucose* 83 mg/dL (60-115)
[2025-02-01 13:19] LABS: PCR FLU A Negative PCR FLU A (Negative); PCR FLU B Negative PCR FLU B (Negative); PCR RSV Negative PCR RSV (Negative); SARS PCR* Negative SARS-CoV-2 (Negative)
[2025-02-01 14:13] LABS: Creatinine, Point-of-Care* 0.8 mg/dl (0.6-1.3)
[2025-02-01 14:24] VITALS: BP 132/90; PULSE 73; RESP 18; TEMP 36.2; O2SAT 100
== END 2025-02-01 14:26 | disposition home or self-care (01) ==
PROVIDERS: Emergency Provider Student in an Organized Health Care Education/Training Program; PCP Family Medicine
DX: K52.9 Noninfective gastroenteritis and colitis, unspecified (principal); R10.33 Periumbilical pain
CPT/HCPCS: 36415; 74177; 80053; 82565; 83690; 84484; 85025; 87631; 93005; 99284; 99285; Q9967

== ENCOUNTER 2025-02-14 13:09 | Outpatient (CLI) | payer MEDICAID, SELFPAY ==
--- NOTE | 2025-02-14 15:50 | P.ANES_ITS ---
Anesthesia Charges Start Date/Time Anesthesia Start Date: 02/14/25 Anesthesia Start Time: 15:32 Stop Date/Time Anesthesia Stop Date: 02/14/25 Anesthesia Stop Time: 15:45 Coding CPT Codes CPT Codes: ANES UPR GI NDSC PX NOS - 62752 ([id number]) P3 - PATIENT W/SEVERE SYS DISEASE, QX - CORRECTION OFFICER [place] OR COUNTY JAIL SVC W/ MD MED DIRECTION, QK - FOUNTAIN SERVER 2-4 CNCRNT ANES PROC
--- NOTE | 2025-02-14 15:50 | W.ANESCHARGE ---
Anesthesia Charges Start Date/Time Anesthesia Start Date: 02/14/25 Anesthesia Start Time: 15:32 Stop Date/Time Anesthesia Stop Date: 02/14/25 Anesthesia Stop Time: 15:45 Coding CPT Codes CPT Codes: ANES UPR GI NDSC PX NOS - 57662 ([id number]) P3 - PATIENT W/SEVERE SYS DISEASE, QX - CALL CENTER COORDINATOR SVC W/ MD MED DIRECTION, QK - BANK REPRESENTATIVE 2-4 CNCRNT ANES PROC
--- NOTE | 2025-02-14 16:04 | P.ANES_ITS ---
Anesthesia Charges Start Date/Time Anesthesia Start Date: 02/14/25 Anesthesia Start Time: 15:32 Stop Date/Time Anesthesia Stop Date: 02/14/25 Anesthesia Stop Time: 15:45 Coding CPT Codes CPT Codes: ANES UPR GI NDSC PX NOS - 37376 ([id number]) QK - DETACHER 2-4 CNCRNT ANES PROC, QX - TELECINE OPERATOR SVC W/ MD MED DIRECTION, P3 - PATIENT W/SEVERE SYS DISEASE
--- NOTE | 2025-02-14 16:04 | W.ANESCHARGE ---
Anesthesia Charges Start Date/Time Anesthesia Start Date: 02/14/25 Anesthesia Start Time: 15:32 Stop Date/Time Anesthesia Stop Date: 02/14/25 Anesthesia Stop Time: 15:45 Coding CPT Codes CPT Codes: ANES UPR GI NDSC PX NOS - 31409 ([id number]) QK - REAL ESTATE DIRECTOR 2-4 CNCRNT ANES PROC, QX - PRODUCT MANAGEMENT ANALYST SVC W/ MD MED DIRECTION, P3 - PATIENT W/SEVERE SYS DISEASE
== END 2025-02-14 13:10 | disposition home or self-care (01) ==
LOC: OP CLINIC 13:10
PROVIDERS: PCP Family Medicine; Visit Provider Surgery
DX: R10.13 Epigastric pain (principal); Z98.84 Bariatric surgery status
CPT/HCPCS: 00731; 43235; J2704; J3490